=== PATIENT | female | born 1985 | race Hispanic/Latino ===

== ENCOUNTER → 2017-06-19 | Outpatient (CLI) | payer OTHER ==
[2017-06-19 10:07] LABS: HCG, SERUM QUANTITATIVE 4083 MIU/ML
== END ==
LOC: M RAD 08:46
DX: Z34.81 Encounter for supervision of other normal pregnancy, first trimester (principal)
CPT/HCPCS: 76801

== ENCOUNTER 2018-02-14 05:25 | Inpatient (IN) | payer OTHER ==
[2018-02-14] MEDS: BUPIVACAINE HCL 0.25% 10 ML VIAL INFIL (06:00)
[2018-02-14] MEDS: ACETAMINOPHEN 650 MG SUPP PR (06:00)
[2018-02-14 06:18] LABS: HEMATOCRIT 30.3 % (36.0-47.0); HEMOGLOBIN 9.9 g/dl (12.0-15.5); MEAN CORPUSCULAR HGB CONC 32.7 g/dl (32.0-36.5); MEAN CORPUSCULAR VOLUME 88.9 fl (80.0-96.0); PLATELET COUNT, AUTOMATED 263 10^3/uL (150-450); RED BLOOD COUNT 3.41 10^6/uL (4.00-5.40); RED CELL DISTRIBUTION WIDTH 14.6 % (11.5-14.5); WHITE BLOOD COUNT 12.1 10^3/uL (4.0-10.0)
[2018-02-14] MEDS: AZITHROMYCIN INJ 500 MG, VIAL MATE ADAPTER 1 EACH in D5W 250 ML IV (06:25)
[2018-02-14] MEDS: LR 1,000 ML IV (06:25)
[2018-02-14] MEDS ORDERED: LR 1,000 ML IV ×2 (07:00→10:15)
[2018-02-14] MEDS: BICITRA 30ML SOLN UDC PO (07:07)
[2018-02-14] MEDS ORDERED: NALBUPHINE HCL 10 MG/ML AMP (J2300) IV (07:55)
[2018-02-14] MEDS ORDERED: NALOXONE INJ 0.4 MG/1 ML VIAL (J2310) IV ×2 (07:55)
[2018-02-14] MEDS ORDERED: ONDANSETRON 4MG/2ML VIAL (J2405) IV ×2 (07:55→10:15)
[2018-02-14] MEDS ORDERED: MORPHINE PRES-FREE INJ 10 MG/10 ML VIAL (J2274) As Ordered (08:40)
[2018-02-14] MEDS ORDERED: ePHEDrine SULFATE 25 MG/5 ML(5MG/ML) SYRINGE As Ordered (08:40)
[2018-02-14] MEDS ORDERED: KETOROLAC 60 MG/2 ML VIAL (J1885) As Ordered (08:40)
[2018-02-14] MEDS ORDERED: dexameTHASONE 4 MG/ML 1ML VIAL (J1100) As Ordered (08:40)
[2018-02-14] MEDS ORDERED: PHENYLephrine HCL 500 MCG/5 ML (100MCG/ML) SYRINGE (J2370) As Ordered (08:40)
[2018-02-14] MEDS ORDERED: ONDANSETRON 4MG/2ML VIAL (J2405) As Ordered (08:40)
[2018-02-14] MEDS ORDERED: OXYTOCIN INJ 10 UNITS/ML VIAL (J2590) As Ordered (08:40)
[2018-02-14] MEDS: OXYTOCIN DRIP 30 UNITS in APPROPRIATE DILUENT 1 EA IV (09:10)
[2018-02-14] MEDS ORDERED: MOM 30ML SUSPENSION UDC PO (09:15)
[2018-02-14] MEDS ORDERED: OXYTOCIN INJ 10 UNITS/ML VIAL (J2590) IV (09:15)
[2018-02-14] MEDS ORDERED: PERCOCET 5MG/325MG TAB PO ×2 (09:15→10:15)
[2018-02-14] MEDS ORDERED: ANUSOL HC CREAM 30GM TOP (09:15)
[2018-02-14] MEDS ORDERED: MEASLES,MUMPS,RUBELLA VACCINE INJ (MMR-II) (90707) SC (09:15)
[2018-02-14] MEDS ORDERED: RHOGAM 300 MCG (1500 IU) INJ (J2790) IM (09:15)
[2018-02-14 09:20] LABS: CORD GAS ABE A -5.3; CORD GAS ABE V -5.6; CORD GAS HCO3 V 20.5 MEQ/L; CORD GAS O2 SAT A 40.3 %; CORD GAS O2 SAT V 49.9 %; CORD GAS PCO2 A 63.8 mmHg; CORD GAS PCO2 V 42.1 mmHg; CORD GAS PH A 7.193 UNITS; CORD GAS PH V 7.305 UNITS; CORD GAS PO2 V 21.6 mmHg; CORD GAS SBC A 18.9 MEQ/L; CORD GAS SBC V 18.9 MEQ/L; CORD GAS TCO2 A 25.9 MEQ/L; CORD GAS TCO2 V 21.8 MEQ/L
[2018-02-14] MEDS ORDERED: METOCLOPRAMIDE INJ 10MG/2ML VIAL (J2765) IV (10:15)
[2018-02-14] MEDS ORDERED: fentaNYL 100 MCG/2 ML INJECTION (J3010) IV (10:15)
[2018-02-14] MEDS: METOCLOPRAMIDE INJ 10MG/2ML VIAL (J2765) IV ×2 (12:42→21:04)
[2018-02-14] MEDS: KETOROLAC 30 MG/ML VIAL (J1885) IV ×2 (14:58→21:05)
[2018-02-14] MEDS: DOCUSATE SODIUM 100 MG CAP PO (21:18)
[2018-02-15] MEDS: KETOROLAC 30 MG/ML VIAL (J1885) IV (03:41)
[2018-02-15 07:15] LABS: HEMATOCRIT 26.3 % (36.0-47.0); HEMOGLOBIN 8.8 g/dl (12.0-15.5); MEAN CORPUSCULAR HGB CONC 33.5 g/dl (32.0-36.5); MEAN CORPUSCULAR VOLUME 89.8 fl (80.0-96.0); PLATELET COUNT, AUTOMATED 237 10^3/uL (150-450); RED BLOOD COUNT 2.93 10^6/uL (4.00-5.40); RED CELL DISTRIBUTION WIDTH 14.4 % (11.5-14.5); WHITE BLOOD COUNT 14.3 10^3/uL (4.0-10.0)
[2018-02-15] MEDS: PERCOCET 5MG/325MG TAB PO ×2 (09:05→20:58)
[2018-02-15] MEDS: IBUPROFEN 800 MG TAB PO ×2 (11:01→18:33)
[2018-02-15] MEDS: DOCUSATE SODIUM 100 MG CAP PO (20:57)
[2018-02-16] MEDS: IBUPROFEN 800 MG TAB PO (03:00)
[2018-02-16] MEDS: PERCOCET 5MG/325MG TAB PO (03:32)
== END 2018-02-16 11:14 | disposition home or self-care (01) | DRG 766 ==
LOC: M LDI 05:25 → M OBS 10:57
PROVIDERS: Obstetrics & Gynecology
PROC: 10D00Z1 Extraction of Products of Conception, Low, Open Approach (ICD-10-PCS; principal; 2018-02-14 07:30)
PROC: 0UL70DZ Occlusion of Bilateral Fallopian Tubes with Intraluminal Device, Open Approach (ICD-10-PCS; 2018-02-14 07:30)
DX: O34.211 Maternal care for low transverse scar from previous cesarean delivery (principal); Z37.0 Single live birth; Z3A.39 39 weeks gestation of pregnancy; Z30.2 Encounter for sterilization; Z79.899 Other long term (current) drug therapy; Z88.8 Allergy status to other drugs, medicaments and biological substances; O16.4 Unspecified maternal hypertension, complicating childbirth

== ENCOUNTER 2018-02-26 15:41 | Emergency (ER) | payer OTHER ==
[2018-02-26] MEDS ORDERED: SUCCINYLCHOLINE 100 MG/5 ML SYRINGE (J0330) (15:42)
[2018-02-26] MEDS ORDERED: MIDAZOLAM INJ 2 MG/2 ML VIAL (J2250) As Ordered (15:59)
[2018-02-26] MEDS ORDERED: PROPOFOL 1,000 MG/100 ML VIAL As Ordered (15:59)
[2018-02-26] MEDS: MIDAZOLAM INJ 5 MG/ML VIAL (J2250) IM (16:05)
[2018-02-26] MEDS: SUCCINYLCHOLINE INJ 200 MG/10 ML VIAL (J0330) IV (16:05)
[2018-02-26] MEDS: NS 1,000 ML IV (16:05)
[2018-02-26] MEDS: PROPOFOL 1,000 MG in APPROPRIATE DILUENT 1 EA IV ×3 (16:10→16:59)
[2018-02-26 16:19] LABS: BASO # 0.1 10^3/uL (0.0-0.2); BASO % 0.3 % (0.0-1.0); EOS % 0.2 % (0.0-3.0); HEMATOCRIT 35.9 % (36.0-47.0); HEMOGLOBIN 11.7 g/dl (12.0-15.5); IMMATURE GRANULOCYTE % 0.5 % (0-3.0); LYMPH # 2.3 10^3/uL (1.5-4.5); LYMPH % 12.9 % (24.0-44.0); MEAN CORPUSCULAR HEMOGLOBIN 29.1 pg (27.0-33.0); MEAN CORPUSCULAR HGB CONC 32.6 g/dl (32.0-36.5); MEAN CORPUSCULAR VOLUME 89.3 fl (80.0-96.0); MONO # 0.7 10^3/uL (0.0-0.8); MONO % 3.7 % (0.0-5.0); NEUTROPHILS # 14.6 10^3/uL (1.8-7.7); NEUTROPHILS % 82.4 % (36.0-66.0); PLATELET COUNT, AUTOMATED 370 10^3/uL (150-450); RED BLOOD COUNT 4.02 10^6/uL (4.00-5.40); RED CELL DISTRIBUTION WIDTH 13.6 % (11.5-14.5); WHITE BLOOD COUNT 17.7 10^3/uL (4.0-10.0)
[2018-02-26] MEDS: LABETALOL HCL 100 MG/20 ML VIAL IV ×3 (17:00→17:41)
[2018-02-26 17:06] LABS: ACETAMINOPHEN LEVEL < 2.0 UG/ML (10.0-30.0); ALBUMIN 3.4 GM/DL (3.2-5.2); ALBUMIN/GLOBULIN RATIO 0.94 (1.00-1.93); ALKALINE PHOSPHATASE 131 U/L (45-117); ALT/SGPT 22 U/L (12-78); ANION GAP 11 MEQ/L (8-16); AST/SGOT 22 U/L (7-37); BILIRUBIN,DIRECT < 0.1 MG/DL (0.0-0.2); BILIRUBIN,TOTAL 0.5 MG/DL (0.2-1.0); BLOOD UREA NITROGEN 12 MG/DL (7-18); CALCIUM LEVEL 8.6 MG/DL (8.5-10.1); CARBON DIOXIDE LEVEL 22 MEQ/L (21-32); CHLORIDE LEVEL 107 MEQ/L (98-107); CPK CREATINE PHOSPHOKINASE 218 U/L (26-192); CREATININE FOR GFR 0.96 MG/DL (0.55-1.30); GLOMERULAR FILTRATION RATE > 60.0 (>60); GLUCOSE, FASTING 128 MG/DL (70-100); MB/CK RELATIVE INDEX 0.92 (< OR =4); POTASSIUM SERUM 4.3 MEQ/L (3.5-5.1); SALICYLATE LEVEL < 1.7 MG/DL (5.0-30.0); SODIUM LEVEL 140 MEQ/L (136-145); TROPONIN I < 0.02 NG/ML (< 0.10)
[2018-02-26] MEDS ORDERED: MANNITOL 25% 12.5 GM/50 ML VIAL (J2150) IV (17:15)
[2018-02-26] MEDS ORDERED: PROPOFOL 1,000 MG in APPROPRIATE DILUENT 1 EA IV (17:15)
[2018-02-26 17:18] LABS: INR 1.07
[2018-02-26 17:19] LABS: PARTIAL THROMBOPLASTIN TIME 25.2 SECONDS (25.4-37.6)
[2018-02-26] MEDS: MANNITOL 20% IV (17:30)
[2018-02-26 17:45] LABS: ETHYL ALCOHOL (ETHANOL) < 0.003 % (0.000-0.010)
== END 2018-02-26 17:55 | disposition short-term general hospital (02) ==
LOC: M ED 15:41
DX: I61.5 Nontraumatic intracerebral hemorrhage, intraventricular (principal); I10 Essential (primary) hypertension; Z88.8 Allergy status to other drugs, medicaments and biological substances
CPT/HCPCS: J0330

== ENCOUNTER 2018-11-05 11:57 | Emergency (ER) | payer OTHER, MEDICAID ==
[~2018-11-05] VITALS: Ht 182.9 cm; Wt 104.5 kg
[~2018-11-05 11:57] MED LIST: COLA100C5 PO; FERR1TAB8 PO; IBUP-1114 PO; LABE20TAB PO; OXYC1TAB23 PO; PRENTAB45 PO; VITA500T PO
[2018-11-05] MEDS ORDERED: FOND10SO SC (12:23)
[2018-11-05] MEDS ORDERED: AMAN100T PO (12:23)
[2018-11-05] MEDS ORDERED: BACL10TA2 PO (12:23)
[2018-11-05] MEDS ORDERED: ZOLO25TA PO (12:27)
[2018-11-05] MEDS ORDERED: TRAZ-252 PO (12:27)
[2018-11-05] MEDS ORDERED: CARV12.5 PO (12:27)
[2018-11-05] MEDS ORDERED: OMEP40CA2 PO (12:27)
[2018-11-05] MEDS ORDERED: LEVE750T5 PO (12:27)
[2018-11-05 13:05] LABS: BASO % 0.3 % (0.0-1.0); EOS # 0.1 10^3/uL (0.0-0.50); EOS % 0.5 % (0.0-3.0); HEMATOCRIT 33.1 % (36.0-47.0); HEMOGLOBIN 10.4 g/dl (12.0-15.5); LYMPH % 21.2 % (24.0-44.0); MEAN CORPUSCULAR HEMOGLOBIN 25.4 pg (27.0-33.0); MEAN CORPUSCULAR HGB CONC 31.4 g/dl (32.0-36.5); MEAN CORPUSCULAR VOLUME 80.7 fl (80.0-96.0); MONO # 0.8 10^3/uL (0.0-0.8); MONO % 8.8 % (0.0-5.0); NEUTROPHILS # 6.6 10^3/uL (1.8-7.7); PLATELET COUNT, AUTOMATED 329 10^3/uL (150-450); WHITE BLOOD COUNT 9.6 10^3/uL (4.0-10.0)
[2018-11-05 13:18] LABS: ALBUMIN 3.3 GM/DL (3.2-5.2); ALT/SGPT 10 U/L (12-78); BILIRUBIN,DIRECT < 0.1 MG/DL (0.0-0.2); BILIRUBIN,TOTAL 0.3 MG/DL (0.2-1.0); BLOOD UREA NITROGEN 17 MG/DL (7-18); CALCIUM LEVEL 8.3 MG/DL (8.5-10.1); CARBON DIOXIDE LEVEL 25 MEQ/L (21-32); CHLORIDE LEVEL 106 MEQ/L (98-107); CK-MB VALUE MASS < 1.0 NG/ML (<3.6); CPK CREATINE PHOSPHOKINASE 41 U/L (26-192); CREATININE FOR GFR 0.82 MG/DL (0.55-1.30); GLOMERULAR FILTRATION RATE > 60.0 (>60); GLUCOSE, FASTING 95 MG/DL (70-100); MB/CK RELATIVE INDEX 2.44 (< OR =4); POTASSIUM SERUM 4.2 MEQ/L (3.5-5.1); SODIUM LEVEL 140 MEQ/L (136-145); TOTAL PROTEIN 7.1 GM/DL (6.4-8.2); TROPONIN I < 0.02 NG/ML (< 0.10)
--- NOTE | 2018-11-05 13:27 | REP ---
Portable chest x-ray: Single view. History: Altered mental status. Comparison chest x-ray: February 26, 2018. Findings: A right-sided ventriculoperitoneal shunt catheter is noted. EKG electrodes are visible. The lungs are symmetrically aerated and clear. Cardiomediastinal silhouette is unremarkable. Pulmonary vasculature is not increased. No significant bony abnormality is appreciated. Impression: No active disease. Right-sided POWER TONG OPERATOR shunt catheter seen. Electronically Signed by Dameon Abrams MD 11/05/2018 01:19 P
--- NOTE | 2018-11-05 14:21 | REP ---
CT Head without contrast HISTORY: Altered mental status COMPARISON: 02/26/2018 encephalomalacia. The patient is status post left frontal temporal parietal cranioplasty. An area of decreased attenuation is present in the posterior left frontal lobe, anterior left parietal lobe, left basal ganglia, internal capsule and thalamus. There is dilatation of the overlying cortical sulci and body of the left lateral ventricle. This represents encephalomalacia. An air decreased attenuation is present in the anterior right frontal lobe. This represents gliosis along a ventricular shunt tube tract. There is no intraparenchymal hemorrhage, mass or midline shift. A shunt is present in the the body of the left lateral ventricle. There is no hydrocephalus. There is no extracerebral collection. The visualized sinuses are clear. IMPRESSION: 1. Left frontal parietal, left basal ganglia, internal capsule and thalamic encephalomalacia. 2. A shunt is present in the left lateral ventricle. There is no hydrocephalus. Electronically Signed by Burton Smith MD 11/05/2018 02:14 P
[2018-11-05 14:30] VITALS: BP 127/78
--- NOTE | 2018-11-05 19:55 | ECGEPIP ---
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
== END 2018-11-05 14:58 | disposition home or self-care (01) ==
LOC: EDBD 11:57 → M ED 11:57
DX: I10 Essential (primary) hypertension (principal); Z98.2 Presence of cerebrospinal fluid drainage device; Z79.899 Other long term (current) drug therapy; Z91.89 Other specified personal risk factors, not elsewhere classified

== ENCOUNTER → 2018-11-07 | Outpatient (RCR) | payer OTHER, MEDICAID ==
--- NOTE | 2018-10-16 16:45 | NUR ---
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 ST recommends tx 2 x weekly for at least 4 weeks Addendum: 10/16/18 at 1646 by MENA HOFFMAN Amended: Links added.
[~2018-11-07] MED LIST changes: +AMAN100T PO; +BACL10TA2 PO; +CARV12.5 PO; +FOND10SO SC; +LEVE750T5 PO; +OMEP40CA2 PO; +TRAZ-252 PO; +ZOLO25TA PO
== END ==
LOC: M PT 10-16 07:46
PROVIDERS: ATTEND Family Medicine
DX: I61.5 Nontraumatic intracerebral hemorrhage, intraventricular (principal); Z51.89 Encounter for other specified aftercare

== ENCOUNTER 2018-12-04 08:40 | Outpatient (RCR) | payer OTHER, MEDICAID | END 2018-12-07 | LOC: M PT 08:40 | PROVIDERS: ATTEND Family Medicine | DX: G40.89 Other seizures (principal); I61.5 Nontraumatic intracerebral hemorrhage, intraventricular ==

== ENCOUNTER 2018-12-10 01:31 | Emergency (ER) | payer OTHER, MEDICAID ==
[~2018-12-10] VITALS: Ht 182.9 cm; Wt 90.0 kg
[2018-12-10 02:14] LABS: HEMATOCRIT 32.6 % (36.0-47.0); HEMOGLOBIN 9.9 g/dl (12.0-15.5); MEAN CORPUSCULAR HEMOGLOBIN 24.4 pg (27.0-33.0); MEAN CORPUSCULAR HGB CONC 30.4 g/dl (32.0-36.5); MEAN CORPUSCULAR VOLUME 80.3 fl (80.0-96.0); PLATELET COUNT, AUTOMATED 371 10^3/uL (150-450); RED BLOOD COUNT 4.06 10^6/uL (4.00-5.40)
[2018-12-10 02:34] LABS: ALBUMIN 3.1 GM/DL (3.2-5.2); ALT/SGPT 11 U/L (12-78); BILIRUBIN,TOTAL 0.1 MG/DL (0.2-1.0); BLOOD UREA NITROGEN 23 MG/DL (7-18); CALCIUM LEVEL 8.2 MG/DL (8.5-10.1); CARBON DIOXIDE LEVEL 28 MEQ/L (21-32); CHLORIDE LEVEL 106 MEQ/L (98-107); CREATININE FOR GFR 1.07 MG/DL (0.55-1.30); GLOMERULAR FILTRATION RATE > 60.0 (>60); GLUCOSE, FASTING 81 MG/DL (70-100); POTASSIUM SERUM 4.3 MEQ/L (3.5-5.1); SODIUM LEVEL 143 MEQ/L (136-145); TOTAL PROTEIN 6.5 GM/DL (6.4-8.2)
[2018-12-10 06:56] VITALS: BP 127/68
--- NOTE | 2018-12-10 08:00 | REP ---
Clinical: cough . Comparison: 11/05/2018 of the . Findings: The mediastinum and cardiac silhouette are stable and within normal limits for portable technique. The lung chaudhary are clear without acute consolidation, effusion, or pneumothorax. Skeletal structures are intact. Impression: No acute cardiopulmonary process appreciated. Electronically Signed by Cuauhtemoc Winters MD 12/10/2018 07:51 A
== END 2018-12-10 07:14 | disposition home or self-care (01) ==
LOC: M ED 01:31
DX: G40.909 Epilepsy, unspecified, not intractable, without status epilepticus (principal); Z86.73 Personal history of transient ischemic attack (TIA), and cerebral infarction without residual deficits; Z79.899 Other long term (current) drug therapy; Z88.8 Allergy status to other drugs, medicaments and biological substances

== ENCOUNTER 2019-01-06 08:41 | Outpatient (RCR) | payer OTHER, MEDICAID | END 2019-01-07 | LOC: M OT 08:41 | PROVIDERS: ATTEND Family Medicine | DX: Z51.89 Encounter for other specified aftercare (principal); I61.5 Nontraumatic intracerebral hemorrhage, intraventricular ==

== ENCOUNTER → 2019-01-19 | Outpatient (CLI) | payer OTHER, MEDICAID ==
--- NOTE | 2019-01-19 11:26 | REP ---
Duplex extremity venous ultrasound: Right lower extremity. History: History of DVT. Findings: The deep veins are anechoic and fully compressible from the groin to the popliteal fossa in the right lower extremity. Color flow imaging is homogeneous. Spectral Doppler interrogation demonstrates intact respiratory variation in flow and normal manual augmentation of flow. There is no evidence of deep vein thrombosis. Impression: Negative right lower extremity duplex venous ultrasound. No evidence of deep vein thrombosis. Electronically Signed by Dameon Abrams MD 01/19/2019 11:17 A
== END ==
LOC: M RAD 10:35
PROVIDERS: ATTEND Family Medicine
DX: Z51.89 Encounter for other specified aftercare (principal); Z86.73 Personal history of transient ischemic attack (TIA), and cerebral infarction without residual deficits; Z86.718 Personal history of other venous thrombosis and embolism; Z79.01 Long term (current) use of anticoagulants

== ENCOUNTER 2019-02-05 09:47 | Outpatient (RCR) | payer OTHER, MEDICAID | END 2019-02-07 | LOC: M PT 09:47 | PROVIDERS: ATTEND Family Medicine | DX: Z51.89 Encounter for other specified aftercare (principal); I61.9 Nontraumatic intracerebral hemorrhage, unspecified; R56.9 Unspecified convulsions ==

== ENCOUNTER 2019-02-21 06:46 | Inpatient (IN) | payer OTHER, MEDICAID ==
[~2019-02-21] VITALS: Ht 182.9 cm; Wt 120.0 kg
[2019-02-21] MEDS ORDERED: ASPI81TA85 PO (07:19)
[2019-02-21 08:40] LABS: BASO % 0.2 % (0.0-1.0); EOS # 0.1 10^3/uL (0.0-0.5); EOS % 0.5 % (0.0-3.0); HEMATOCRIT 22.1 % (36.0-47.0); LYMPH # 1.6 10^3/uL (1.5-5.0); LYMPH % 9.2 % (24.0-44.0); MEAN CORPUSCULAR HEMOGLOBIN 23.1 pg (27.0-33.0); MEAN CORPUSCULAR HGB CONC 30.8 g/dl (32.0-36.5); MEAN CORPUSCULAR VOLUME 75.2 fl (80.0-96.0); MONO # 1.7 10^3/uL (0.0-0.8); MONO % 9.8 % (0.0-5.0); NEUTROPHILS # 13.3 10^3/uL (1.5-8.5); NEUTROPHILS % 77.6 % (36.0-66.0); PLATELET COUNT, AUTOMATED 413 10^3/uL (150-450); RED BLOOD COUNT 2.94 10^6/uL (4.00-5.40); WHITE BLOOD COUNT 17.1 10^3/uL (4.0-10.0)
[2019-02-21 08:46] LABS: HEMOGLOBIN 6.8 g/dl (12.0-15.5)
[2019-02-21 08:49] LABS: ALBUMIN 2.5 GM/DL (3.2-5.2); BILIRUBIN,DIRECT 0.8 MG/DL (0.0-0.2); BILIRUBIN,TOTAL 1.3 MG/DL (0.2-1.0); CALCIUM LEVEL 9.1 MG/DL (8.5-10.1); CREATININE FOR GFR 1.21 MG/DL (0.55-1.30); GLOMERULAR FILTRATION RATE 53.9 (>60); POTASSIUM SERUM 3.9 MEQ/L (3.5-5.1); TOTAL PROTEIN 7.4 GM/DL (6.4-8.2)
[2019-02-21 11:00] LABS: PERCENT SATURATION 4.2 % (13.2-45.0)
--- NOTE | 2019-02-21 11:32 | REP ---
REASON: Abdominal pain, assess for possible diverticulitis. Oral bowel preparatory contrast was not administered prior to the exam. Intravenous contrast was withheld due to the patient's known INTRAVENOUS CONTRAST ALLERGY. COMPARISON EXAMINATION: 02/26/2018 The lung bases are clear. The patchy basilar opacities seen on the prior exam have resolved. There are no pleural or pericardial effusions. Limited evaluation of the solid intra-abdominal organs and gallbladder shows no gross abnormalities. Limited evaluation of the pancreas, adrenal glands, and kidneys, shows no gross abnormalities. Limited evaluation of the abdominal aorta and para-aortic regions shows no abnormalities. Since the last examination, an inferior vena cava filter has been placed, the tip of which is at the level of the inferior endplate of L1. Limited evaluation of the bowel loops and their mesenteries shows a minimal amount of free fluid in the left paracolic gutter. There is minimal fatty infiltration of the left lateroconal fascia. There is no definite pericolonic fatty infiltration on this limited exam. There is no free air in the abdomen. There is no free air in the pelvis. There is a moderate amount of free pelvic fluid. There is evidence of left iliac vein enlargement compared to the right, not appreciated well on the left thigh CT since no comparison right-sided thigh CT was obtained. This suggested finding is difficult to evaluate without intravenous contrast administration. In addition, there is evidence of perivascular fatty infiltration. There are multiple borderline and enlarged left hemipelvic sidewall and inguinal lymph nodes. Bone window technique throughout the exam shows the osseous structures to be within normal limits for the patient's age. Note is made of a partially imaged right-sided ventricular peritoneal shunt catheter, the tip of which is in the right anterior hemipelvis. IMPRESSION: 1. Free fluid in the abdomen/pelvis with nonpericolonic fatty infiltration in the left hemipelvis and seen with a minimal amount of fluid in the left paracolic gutter and a small to moderate amount of free pelvic fluid. There is no definite evidence of diverticulitis at this time. 2. Abnormal findings involving the left iliac vessels and proximal thigh neurovascular bundle, as described above. Vasculitis cannot be ruled out. Acute DVT cannot be ruled out. 3. There is left groin and left sidewall adenopathy further suggesting an inflammatory process of uncertain etiology. 4. Other findings as described above. Electronically Signed by Ellis Blas DO 02/21/2019 11:35 A
--- NOTE | 2019-02-21 11:40 | REP ---
REASON FOR EXAM: Assess for potential abscess inner aspect left thigh. Patient has an INTRAVENOUS CONTRAST ALLERGY. Intravenous contrast was withheld secondary to that. There is mild to moderate diffuse fatty infiltration seen throughout the imaged anterior and medial thigh subcutanea. There is mild to moderate diffuse fatty infiltration surrounding the neurovascular bundle of the thigh. This is difficult to fully assess due to the lack of intravenous contrast administration. There are no abnormal air-fluid levels. There is no fracture. There is no destructive osseous lesion. IMPRESSION: Edema with findings and limitations as described above. This examination can not assess for a potential vascular abnormality. Electronically Signed by Ellis Blas DO 02/21/2019 11:50 A
[2019-02-21] MEDS ORDERED: TIZA2CAP PO ×2 (12:28)
[2019-02-21] MEDS ORDERED: LEVE750XR PO (12:28)
--- NOTE | 2019-02-21 12:57 | REP ---
REASON: Thigh pain and swelling with prior CT evidence to suggest venous abnormality. All interested parties should review the CT of the abdomen and CT of the left thigh report. Multiple ultrasonographic images of the deep venous structures of the left thigh were obtained from the level of the common femoral vein to the popliteal vein along with Doppler interrogative techniques and color flow Doppler imaging. Extensive abnormal echogenic material fills the imaged deep venous structures from the common femoral vein to the popliteal vein inclusive. There is no response to augmentation, and there is inability for coaptation. The technologist noted extensive edema of the thigh soft tissues throughout the exam. IMPRESSION: There is extensive deep vein thrombosis involving the left thigh, as described above. Electronically Signed by Ellis lBas DO 02/21/2019 03:17 P
[2019-02-21] MEDS ORDERED: PILL CUTTER 1 EACH XX PRN (13:30)
[2019-02-21] MEDS ORDERED: cefTRIAXone SOD 1 GM in D5W MINI-BAG PLUS 50 ML IV ONE (13:30)
--- NOTE | 2019-02-21 14:01 | REP ---
REASON: Pain and swelling. COMPARISON: 01/19/2019, which was normal. Multiple ultrasonographic images of the deep venous structures of the right thigh were obtained from the level of the common femoral vein to the popliteal vein along with Doppler compressive technique, augmentation, and color flow imaging. There is abnormal echogenic material seen throughout the deep venous structures of the right thigh, as described above. Coaptation is unachievable. IMPRESSION: Extensive right thigh DVT. Electronically Signed by Ellis Blas DO 02/21/2019 03:20 P
[2019-02-21] MEDS: HEPARIN DRIP 25,000 UNITS in APPROPRIATE DILUENT 1 EA IV SCH (14:23)
[2019-02-21 14:45] VITALS: BP 123/67
--- NOTE | 2019-02-21 15:07 | HPEPDOC ---
[facility] Medical History & Physical Date of Admission Feb 21, 2019 Date of Service: Feb 21, 2019 Other Provider PCP: Eran cordero Attending Physician: TOBI VERDUGO MD History and Physical PRIMARY CARE PROVIDER: Eran Cordero ATTENDING: Dr. Tobi Verdugo CHIEF COMPLAINT: lower extremity swelling, abdominal pain HISTORY OF PRESENT ILLNESS: Patient is a 33 year old female presenting with chief complaint of left lower extremity swelling/pain for one week along with some lower abdominal pain, fevers, chills, weakness, malaise, poor appetite, and dysuria. Work up in the ER revealed LLE DVT, a hgb of 6.8 with low iron, WBC of 17, and a cloudy UA with some WBCs. Dr. Roth was consulted for further management. Below is a brief synopsis of patient's pertinent recent past medical history: Patient had a on 02/14/2018 and was stable on discharge home. On 02/26/18, the patient's returned home from work and found her unresponsive. She was brought to [facility] ED where she needed to be intubated and a CT scan showed intracranial hemorrhage with transtentorial herniation so the patient was transferred to [facility] for craniotomy to relieve her intracranial pressure however patient was left with R-sided hemiparesis. This was thought to be due to a seizure secondary to the patient's eclampsia. She continued to have recurrent seizures and is seeing Dr. Marin for same. While working with rehab, it was noticed she was having lower extremity swelling and after an ultrasound revealed she had DVT's, an IVC filter was placed and she was started on fondoparinoux. She was on the for 9 months and it was discontinued by [facility] approximately 4 weeks ago. She underwent a right lower extremity U/S on 01/19 that was negative for a DVT. PAST MEDICAL HISTORY: Seizures 2/2 eclampsia Intracranial Hemorrhage secondary eclampsia Obesity PAST SURGICAL HISTORY: CSx2 Craniotomy Bilateral tubal ligation SOCIAL HISTORY: Denies use of alcohol, tobacco products, or illicit drug use. Lives at home with her and 2 children. FAMILY HISTORY: No family history of blood disorders, strokes, or seizure disorders. ALLERGIES: Please see below. REVIEW OF SYSTEMS: GENERAL: Denies recent unexpected weight change, night sweats, hemoptysis. Admits to fevers, chills. HEENT: Denies headache, dizziness, vision changes, hearing loss, sore throat CARDIOVASCULAR: Denies chest pain, palpitations, orthopnea RESPIRATORY: Denies shortness of breath, wheezing, cough GASTROINTESTINAL: denies nausea, vomiting, constipation, diarrhea, bloody stool. Admits to mild lower abdominal tenderness. GENITOURINARY: Denies urinary urgency, hematuria. Admits to dysuria and pyuria. MUSCULOSKELETAL: Denies muscle/joint pain, weakness, stiffness NEUROLOGICAL: Denies any new or worsening numbness/tingling, focal weakness, or syncope HOME MEDICATIONS: Please see below. PHYSICAL EXAMINATION: Vitals: (see below) General: Sad appearing 33 year old female who appears stated age sitting in bed HEENT: Normocephalic, atraumatic. EOMI. Moist mucous membranes. No pharyngeal e rythema or uvular deviation. Neck: No JVD, lymphadenopathy, or thyromegaly. Cardiac: RRR, Normal S1 and S2, No murmurs, gallops, rubs. Pulm: Clear to auscultation b/l. Symmetric thorax. No wheezing, crackles, rhonchi Abd: Bowel Sounds present. Abdomen is soft, non-tender, non-distended. No guardi ng, rebound tenderness, or rigidity. Ext: Bilateral lower extremity edema. Difficult to palpate LE pulses secondary to patient body habitus. Neuro: Patient is alert and oriented. CN 2-12 intact. RUE+0/5, RLE+1/5. LUE +5/5, LLE +3/5. Sensation intact in LUE, LLE. Diminished sensation in RUE and RLE. LABORATORY DATA: See below. IMAGIN02/21/[address] without contrast: There is mild to moderate diffuse fatty infiltration seen throughout the imaged anterior and medial thigh subcutanea. There is mild to moderate diffuse fatty infiltration surrounding the neurovascular bundle of the thigh. This is difficult to fully assess due to the lack of intravenous contrast administrat ion. There are no abnormal air-fluid levels. There is no fracture. There is no destructive osseous lesion. 02/21/19 abdomen/pelvis CT: 1. Free fluid in the abdomen/pelvis with nonpericolonic fatty infiltration in the left hemipelvis and seen with a minimal amount of fluid in the left paracolic gutter and a small to moderate amount of free pelvic fluid. There is no definite evidence of diverticulitis at this time. 2. Abnormal findings involving the left iliac vessels and proximal thigh neurova scular bundle, as described above. Vasculitis cannot be ruled out. Acute DVT cannot be ruled out. 3. There is left groin and left sidewall adenopathy further suggesting an inflammatory process of uncertain etiology. 02/21/19 left lower extremity ultrasound: Extensive abnormal echogenic material fills the imaged deep venous structures from the common femoral vein to the popliteal vein inclusive. There is no response to augmentation, and there is inability for coaptation. 02/21/19 right lower extremity ultrasound Extensive right thigh DVT from common femoral vein to the popliteal vein. MICROBIOLOGY: Please see below. ASSESSMENT/PLAN: #. Bilateral lower extremity DVT -Dr. Roht has been consulted and spoke to ED provider as well as Dr. Verdugo. The plan, per , is for 24 hours of heparin drip after which he will proceed with thrombolysis. Dr. Verdugo explained to both the patient and her , at length, the risks including and further intracranial stroke/bleed of both the heparin drip and thrombolysis in light of the patient's history of intracranial hemorrhage. The patient and her verbalized understanding and agreement with the risks associated with treatment and were comfortable with the plan for thrombolysis moving forward. - gave number for adult protective caseworker at [facility] who is available M-F at [phone]. #. Microcytic anemia - Type and cross, planning to transfuse 2 units of blood, consent already signed. Patient reports no history of bleeding so we will continue to monitor while patient is on heparin drip. - Obtaining iron panel #. Dysuria -Given patients WBC count, temperature at home of 102, chills, lower abdominal p ain, mild renal insufficiency, and urinary symptoms we will treat for UTI with ceftriaxone and draw urine cultures to see if anything grows. -Tylenol for fevers #. Right-sided hemiparesis s/p ICH -PT/OT consulted, she works with them during the week already. #. Leukocytosis -Treating for UTI currently as no evidence of infection elsewhere, could just be secondary to inflammation from DVT. Will await blood culture and urine culture results. #. Renal insufficiency - This could be from the suspected UTI will continue to monitor for changes. #. Recurrent seizures -Continue home jinny alvarezantadine #.GERD -Continue home omeprazole #. HTN -Continue home carvedilol DVT proph: N/a; actively treating bilateral lower extremity DVT Vital Signs Vital Signs Date Time Temp Pulse Resp B/P (MAP) Pulse Ox O2 Delivery O2 Flow Rate FiO2 02/21/19 13:43 98.8 02/21/19 13:31 98 18 139/79 (99) 100 Room Air Laboratory Data Labs 24H Laboratory Tests 2 02/21/19 07:26: Immature Granulocyte % (Auto) 2.7, White Blood Count 17.1H, Red Blood Count 2.94L, Hemoglobin 6.8*L, Hematocrit 22.1L, Mean Corpuscular Volume 75.2L, Mean Corpuscular Hemoglobin 23.1L, Mean Corpuscular Hemoglobin Concent 30.8L, Red Cell Distribution Width 17.1H, Platelet Count 413, Neutrophils (%) (Auto) 77.6H, Lymphocytes (%) (Auto) 9.2L, Monocytes (%) (Auto) 9.8H, Eosinophils (%) (Auto) 0.5, Basophils (%) (Auto) 0.2, Neutrophils # (Auto) 13.3H, Lymphocytes # (Auto) 1.6, Monocytes # (Auto) 1.7H, Eosinophils # (Auto) 0.1, Basophils # (Auto) 0.0, Nucleated Red Blood Cells % (auto) 0.0, Urine Color HANY, Urine Appearance CLOUDYH, Urine pH 5.0, Urine Specific Sharon 1.028, Urine Protein 2+H, Urine Glucose (UA) NEGATIVE, Urine Ketones NEGATIVE, Urine Blood NEGATIVE, Urine Nitrite NEGATIVE, Urine Bilirubin 1+H, Urine Urobilinogen 4.0H, Urine Leukocyte Esterase NEGATIVE, Urine WBC (Auto) 7H, Urine RBC (Auto) 1, Urine Hyaline Casts (Auto) 0, Urine Bacteria (Auto) NEGATIVE, Urine Squamous Epithelial Cells 1, Urine Amorphous Sediment SMALLH, Urine Mucus (Auto) LARGE, Urine Sperm (Auto) , Anion Gap 10, Glomerular Filtration Rate 53.9L, Calcium Level 9.1, Iron Level 11L, Total Iron Binding Capacity 263, Transferrin % Saturation 4.2L, Ferritin 227, Aspartate Amino Transf (AST/SGOT) 44H, Alanine Aminotransferase (ALT/SGPT) 74, Alkaline Phosphatase 355H, Total Bilirubin 1.3H, Direct Bilirubin 0.8H, Total Protein 7.4, Albumin 2.5L, Albumin/Globulin Ratio 0.51L 02/21/19 09:35: Lactic Acid Level 0.9, Ammonia < 10 02/21/19 13:42: CBC/BMP Laboratory Tests 02/21/19 07:26 Red Blood Count 2.94 L, Mean Corpuscular Volume 75.2 L, Mean Corpuscular Hemoglobin 23.1 L, Mean Corpuscular Hemoglobin Concent 30.8 L, Red Cell Distribution Width 17.1 H, Neutrophils (%) (Auto) 77.6 H, Lymphocytes (%) (Auto) 9.2 L, Monocytes (%) (Auto) 9.8 H, Eosinophils (%) (Auto) 0.5, Basophils (%) (Auto) 0.2, Neutrophils # (Auto) 13.3 H, Lymphocytes # (Auto) 1.6, Monocytes # (Auto) 1.7 H, Eosinophils # (Auto) 0.1, Basophils # (Auto) 0.0 Microbiology Microbiology 02/21/19 Blood Culture, Received Pending 02/21/19 Blood Culture, Received Pending 02/21/19 Respiratory Virus Panel (PCR) (SARAH) - Final, Complete 02/21/19 Urine Culture, Received Pending Home Medications Scheduled Amantadine HCl (Amantadine) 100 Mg Tablet, 100 MG PO BID TAKES AT 0800/1200 Aspirin (Aspir 81) 81 Mg Tablet.dr, 81 MG PO DAILY TAKES AT NOON Carvedilol (Carvedilol) 12.5 Mg Tablet, 12.5 MG PO BID TAKES AT 1200/2000 Levetiracetam (Levetiracetam ER) 750 Mg Tab.er.24h, 750 MG PO BID TAKES AT 0800/2000 Omeprazole (Omeprazole) 40 Mg Capsule.dr, 40 MG PO DAILY TAKES AT NOON Tizanidine HCl (Tizanidine HCl) 2 Mg Capsule, 2 MG PO DAILY Tizanidine HCl (Tizanidine HCl) 2 Mg Capsule, 4 MG PO QHS Allergies Coded Allergies: iodine (Verified Allergy, Intermediate, hives, 12/10/18) A-FIB/CHADSVASC A-FIB History Current/History of A-Fib/PAF?: No GME ATTESTATION GME ATTESTATION My faculty preceptor for this patient encounter was physically present during the encounter and was fully available. All aspects of the patient interview, examination, medical decision making process, and medical care plan development were reviewed and approved by the faculty preceptor. The faculty preceptor is aware and concurs with the plan as stated in the body of this note and will attest to such by his/her cosignature. ATTENDING NOTE I, Tobi Verdugo, have independently examined this patient and performed my own physical exam, as well as reviewed the documentation and edited where necessary. I have discussed in detail with the resident / student the findings and plan of treatment as documented by the resident / student and edited their note. I agree with their findings and treatment plan and have edited their documentation. I will continue to follow the patient during this hospital stay. MENDOZA GARCÍA DO Feb 21, 2019 15:07 TOBI VERDUGO MD Feb 21, 2019 22:40
[2019-02-21] MEDS: CARVedilol 12.5 MG TAB PO SCH ×2 (15:54→20:00)
[2019-02-21] MEDS: OMEPRAZOLE 20 MG CAP PO SCH (15:55)
[2019-02-21] MEDS: ASPIRIN 81 MG ENTERIC TAB PO SCH (15:55)
[2019-02-21] MEDS: levETIRAcetam **XR** 750MG TABLET (KEPPRA XR) PO SCH ×2 (15:56→20:36)
[2019-02-21] MEDS: AMANTADINE 100 MG CAP PO SCH (15:56)
[2019-02-21 18:00] VITALS: BP 127/61
[2019-02-21 20:00] VITALS: BP 118/58
[2019-02-21] MEDS: tiZANidine 4 MG TAB PO SCH (20:36)
[2019-02-21] MEDS ORDERED: LIDOCAINE 1% MDV 20ML VIAL As Ordered ONE (22:12)
[2019-02-21 23:15] VITALS: BP 119/58
[2019-02-21] MEDS ORDERED: IBUPROFEN 400 MG TAB PO ONE (23:15)
[2019-02-21] MEDS: HEPARIN SOD (PORCINE) 5000 UNITS/ML VIAL IV PRN (23:28)
[2019-02-21 23:30] VITALS: BP 115/56
[2019-02-21] MEDS ORDERED: LIDOCAINE 1% MDV 20ML VIAL SC ONE (23:50)
[2019-02-22] VITALS (8 sets, daily range): BP systolic 92–131; BP diastolic 52–63
[2019-02-22] MEDS: HEPARIN DRIP 25,000 UNITS in APPROPRIATE DILUENT 1 EA IV SCH (03:49)
[2019-02-22 05:19] LABS: HEMATOCRIT 24.6 % (36.0-47.0); MEAN CORPUSCULAR HEMOGLOBIN 24.8 pg (27.0-33.0); MEAN CORPUSCULAR HGB CONC 32.5 g/dl (32.0-36.5); MEAN CORPUSCULAR VOLUME 76.4 fl (80.0-96.0); PLATELET COUNT, AUTOMATED 442 10^3/uL (150-450); RED BLOOD COUNT 3.22 10^6/uL (4.00-5.40); WHITE BLOOD COUNT 17.1 10^3/uL (4.0-10.0)
[2019-02-22 05:29] LABS: INR 1.29; PROTHROMBIN TIME 15.8 SECONDS (11.8-14.0)
[2019-02-22 05:31] LABS: PARTIAL THROMBOPLASTIN TIME 80.5 SECONDS (25.0-38.4)
[2019-02-22 06:20] LABS: CALCIUM LEVEL 8.4 MG/DL (8.5-10.1); CREATININE FOR GFR 1.13 MG/DL (0.55-1.30); GLOMERULAR FILTRATION RATE 58.3 (>60); POTASSIUM SERUM 4.1 MEQ/L (3.5-5.1)
[2019-02-22] MEDS: AMANTADINE 100 MG CAP PO SCH ×2 (08:53→11:12)
[2019-02-22] MEDS: tiZANidine 4 MG TAB PO SCH ×2 (08:53→20:22)
[2019-02-22] MEDS: levETIRAcetam **XR** 750MG TABLET (KEPPRA XR) PO SCH ×2 (08:53→20:22)
[2019-02-22] MEDS: cefTRIAXone SOD 1 GM in D5W MINI-BAG PLUS 50 ML IV SCH (08:53)
[2019-02-22] MEDS: ACETAMINOPHEN TAB 650MG DOSE (2X325MG) PO PRN (09:51)
--- NOTE | 2019-02-22 10:10 | IPNPDOC ---
Text Note Date of Service The patient was seen on 02/22/19. NOTE Subjective: Patient is a 33-year-old female with past medical history of ICH s/p surgical decompression, Seizures 2/2 eclampsia, Obestiy, Hx of DVT (s/p IVC and An ticoagulation >9 months) who presented to the emergency room after experiencing discomfort with urination as well as left lower abdominal pain and left leg. Patient noted that she had been taken off of anticoagulation, possibly 4 weeks ago after having a negative evaluation for DVT via a duplex ultrasound of her lower extremities. Upon arrival to emergency room, patient was suspected of having a urinary tract infection as well as extensive DVT of her left lower extremity. Additional imaging in the emergency room revealed that she had DVTs in her right lower extremity as well. Vascular surgery was called on consultation and hospitalist group was called for further evaluation Patient was seen and examined at the bedside. Currently, patient reports that she feels relatively unchanged. She denies any chest pain, shortness of breath or palpitations. Patient denies any significant discomfort with urination. Does report some leg discomfort. Objective: Vitals (See below) General: Lying in bed, no acute distress, comfortable, AAOx3 HEENT: NC, AT CVS: +S1S2 Lungs: Fair air entry b/l, -w/r/r Abdomen: Soft, ND, NT Extremities: Trace edema bilaterally, - Calf tenderness Imagin02/21/[address] without contrast: There is mild to moderate diffuse fatty infiltration seen throughout the imaged anterior and medial thigh subcutanea. There is mild to moderate diffuse fatty infiltration surrounding the neurovascular bundle of the thigh. This is difficult to fully assess due to the lack of intravenous contrast administrati on. There are no abnormal air-fluid levels. There is no fracture. There is no destructive osseous lesion. 02/21/19 abdomen/pelvis CT: 1. Free fluid in the abdomen/pelvis with nonpericolonic fatty infiltration in the left hemipelvis and seen with a minimal amount of fluid in the left paracolic gutter and a small to moderate amount of free pelvic fluid. There is no definite evidence of diverticulitis at this time. 2. Abnormal findings involving the left iliac vessels and proximal thigh neurovascular bundle, as described above. Vasculitis cannot be ruled out. Acute DVT cannot be ruled out. 3. There is left groin and left sidewall adenopathy further suggesting an inflammatory process of uncertain etiology. 02/21/19 left lower extremity ultrasound: Extensive abnormal echogenic material fills the imaged deep venous structures from the common femoral vein to the popliteal vein inclusive. There is no response to augmentation, and there is inability for coaptation. 02/21/19 right lower extremity ultrasound Extensive right thigh DVT from common femoral vein to the popliteal vein. Assessment and plan: Leg discomfort - likely 2/2 sensitive bilateral lower extremity DVT - possibly 2/2 thrombus extending from IVC filter - Currently, patient remains hemodynamically stable - Duplex ultrasound; noted above - extensive DVTs bilaterally - I had an extensive discussion with the patient as well as her , including risks and benefits of anticoagulation/thrombolysis - advised to her the risks include possibility of intracranial hemorrhage given her prior histor y, also disability and/or - Dr. 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/2018) - She follows physical therapy/occupational therapy as an outpatient Leukocytosis - possibly 2/2 UTI (See above), possibly 2/2 reactive etiology - from extensive DVT - Hemodynamically stable / Afebrile - Will continue to monitor Renal insufficiency - Will start gentle IV fluid hydration for 1 liter only HTN - BP well controlled - c/w Carvedilol - adjusted to include holding parameters Hx of Seizures - c/w Keppra GERD - c/w Omeprazole DVT prophylaxis - c/w full anticoagulation with Heparin drip VS,Fishbone, I+O VS, Fishbone, I+O Laboratory Tests 02/22/19 05:03 Red Blood Count 3.22 L, Mean Corpuscular Volume 76.4 L, Mean Corpuscular Hemoglobin 24.8 L, Mean Corpuscular Hemoglobin Concent 32.5, Red Cell Distribution Width 18.6 H, Calcium Level 8.4 L Vital Signs Date Time Temp Pulse Resp B/P (MAP) Pulse Ox O2 Delivery O2 Flow Rate FiO2 02/22/19 03:45 99.4 83 16 92/52 (65) 02/21/19 23:30 96 02/21/19 13:31 Room Air I&O- Last 24 Hours up to 6 AM 02/22/19 06:00 Intake Total 1105 ml Output Total 300 ml Balance 805 ml KYLEE VIGIL MD Feb 22, 2019 10:10
[2019-02-22] MEDS ORDERED: NS 1,000 ML IV ONE (10:15)
[2019-02-22 10:20] LABS: HEMATOCRIT 26.4 % (36.0-47.0); HEMOGLOBIN 8.6 g/dl (12.0-15.5); MEAN CORPUSCULAR HEMOGLOBIN 24.7 pg (27.0-33.0); MEAN CORPUSCULAR HGB CONC 32.6 g/dl (32.0-36.5); MEAN CORPUSCULAR VOLUME 75.9 fl (80.0-96.0); PLATELET COUNT, AUTOMATED 489 10^3/uL (150-450); RED BLOOD COUNT 3.48 10^6/uL (4.00-5.40); WHITE BLOOD COUNT 17.9 10^3/uL (4.0-10.0)
[2019-02-22] MEDS: HEPARIN SOD (PORCINE) 5000 UNITS/ML VIAL IV PRN (11:10)
[2019-02-22] MEDS: OMEPRAZOLE 20 MG CAP PO SCH (11:12)
[2019-02-22] MEDS: CARVedilol 12.5 MG TAB PO SCH ×2 (11:15→20:23)
[2019-02-22] MEDS: ASPIRIN 81 MG ENTERIC TAB PO SCH (11:15)
[2019-02-22 11:18] LABS: LYMPHOCYTES 11 % (16-44); METAMYELOCYTES 2 % (0-0); MONOCYTES 3 % (0-5); NEUTROPHILS 80 % (28-66)
[2019-02-22 11:19] LABS: OVALOCYTES 1+; PLATELET ESTIMATE INCREASED (NORMAL)
[2019-02-22 11:20] LABS: ANISOCYTOSIS 2+
[2019-02-23] VITALS (16 sets, daily range): BP systolic 93–122; BP diastolic 51–73
[2019-02-23] MEDS: HEPARIN DRIP 25,000 UNITS in APPROPRIATE DILUENT 1 EA IV SCH (04:13)
[2019-02-23 07:14] LABS: HEMOGLOBIN 7.5 g/dl (12.0-15.5); MEAN CORPUSCULAR HEMOGLOBIN 24.2 pg (27.0-33.0); MEAN CORPUSCULAR HGB CONC 32.6 g/dl (32.0-36.5); MEAN CORPUSCULAR VOLUME 74.2 fl (80.0-96.0); PLATELET COUNT, AUTOMATED 536 10^3/uL (150-450); WHITE BLOOD COUNT 15.9 10^3/uL (4.0-10.0)
[2019-02-23 07:28] LABS: INR 1.27; PROTHROMBIN TIME 15.6 SECONDS (11.8-14.0)
[2019-02-23 07:29] LABS: PARTIAL THROMBOPLASTIN TIME 89.8 SECONDS (25.0-38.4)
[2019-02-23 07:51] LABS: BLOOD UREA NITROGEN 27 MG/DL (7-18); CALCIUM LEVEL 8.2 MG/DL (8.5-10.1); CARBON DIOXIDE LEVEL 21 MEQ/L (21-32); CHLORIDE LEVEL 108 MEQ/L (98-107); CREATININE FOR GFR 0.74 MG/DL (0.55-1.30); GLOMERULAR FILTRATION RATE > 60.0 (>60); GLUCOSE, FASTING 110 MG/DL (70-100); POTASSIUM SERUM 4.2 MEQ/L (3.5-5.1); SODIUM LEVEL 140 MEQ/L (136-145)
[2019-02-23] MEDS: cefTRIAXone SOD 1 GM in D5W MINI-BAG PLUS 50 ML IV SCH (09:42)
[2019-02-23] MEDS: tiZANidine 4 MG TAB PO SCH ×2 (09:43→21:04)
[2019-02-23] MEDS: AMANTADINE 100 MG CAP PO SCH ×2 (09:44→11:34)
[2019-02-23] MEDS: levETIRAcetam **XR** 750MG TABLET (KEPPRA XR) PO SCH ×2 (10:03→21:03)
[2019-02-23 10:24] LABS: FOLATE 18.7 NG/ML (>5.4)
--- NOTE | 2019-02-23 10:33 | IPNPDOC ---
Text Note Date of Service The patient was seen on 02/23/19. NOTE Subjective: Patient is a 33-year-old female with past medical history of ICH s/p surgical decompression, Seizures 2/2 eclampsia, Obestiy, Hx of DVT (s/p IVC and An ticoagulation >9 months) who presented to the emergency room after experiencing discomfort with urination as well as left lower abdominal pain and left leg. Patient noted that she had been taken off of anticoagulation, possibly 4 weeks ago after having a negative evaluation for DVT via a duplex ultrasound of her lower extremities. Upon arrival to emergency room, patient was suspected of having a urinary tract infection as well as extensive DVT of her left lower extremity. Additional imaging in the emergency room revealed that she had DVTs in her right lower extremity as well. Vascular surgery on consultation and hospitalist group called for further evaluation. Patient seen at bedside. No acute events overnight, but reports she is not sleeping well. She denies any fevers, chils, chest pain, difficulty breathing, abdominal pain, or urinary symptoms. She continues to admit to some leg discomfort particularly when the leg is moved, but when it is kept still she has no problems. Objective: Vitals (See below) General: Lying in bed in no acute distress. HEENT: normocephalic, atraumatic CVS: RRR, normal S1 and S2. Lungs: Mildly diminished breath sounds bilaterally, no wheezes, crackles, rhonchi. Abdomen: Soft,non-tender, non-distended. Extremities: Mild pitting edema bilaterally Neuro: Exam unchanged from admission Imagin02/21/[address] without contrast: There is mild to moderate diffuse fatty infiltration seen throughout the imaged anterior and medial thigh subcutanea. There is mild to moderate diffuse fatty infiltration surrounding the neurovascular bundle of the thigh. This is difficult to fully assess due to the lack of intravenous contrast administration. There are no abnormal air-fluid levels. There is no fracture. There is no destructive osseous lesion. 02/21/19 abdomen/pelvis CT: 1. Free fluid in the abdomen/pelvis with nonpericolonic fatty infiltration in the left hemipelvis and seen with a minimal amount of fluid in the left paracolic gutter and a small to moderate amount of free pelvic fluid. There is no definite evidence of diverticulitis at this time. 2. Abnormal findings involving the left iliac vessels and proximal thigh neurovascular bundle, as described above. Vasculitis cannot be ruled out. Acute DVT cannot be ruled out. 3. There is left groin and left sidewall adenopathy further suggesting an inflammatory process of uncertain etiology. 02/21/19 left lower extremity ultrasound: Extensive abnormal echogenic material fills the imaged deep venous structures fr om the common femoral vein to the popliteal vein inclusive. There is no response to augmentation, and there is inability for coaptation. 02/21/19 right lower extremity ultrasound Extensive right thigh DVT from common femoral vein to the popliteal vein. Assessment and plan: Leg discomfort - likely 2/2 sensitive bilateral lower extremity DVT - possibly 2/2 thrombus extending from IVC filter - Currently, patient remains hemodynamically stable - Duplex ultrasound; noted above - extensive DVTs bilaterally - I had an extensive discussion again with patient as well as her , including risks and benefits of anticoagulation/thrombolysis - advised to her the risks include possibility of intracranial hemorrhage given her prior history, also disability and/or - Dr. Roth, Vascular surgery on consultation - current plan is to have patient undergo thrombolysis later today. 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 (02/2018) - She follows physical therapy/occupational therapy as an outpatient Leukocytosis - possibly 2/2 UTI (See above), possibly 2/2 reactive etiology - from extensive DVT - Hemodynamically stable / Afebrile - Will continue to monitor Renal insufficiency - Improved today s/p 1 liter of fluid yesterday HTN - BP well controlled - c/w Carvedilol - adjusted to include holding parameters Hx of Seizures - c/w Keppra GERD - c/w Omeprazole DVT prophylaxis - c/w full anticoagulation with Heparin drip VS,Fishbone, I+O VS, Fishbone, I+O Laboratory Tests 02/23/19 06:51 Red Blood Count 3.10 L, Mean Corpuscular Volume 74.2 L, Mean Corpuscular Hemoglobin 24.2 L, Mean Corpuscular Hemoglobin Concent 32.6, Red Cell Distribution Width 18.6 H, Calcium Level 8.2 L Vital Signs Date Time Temp Pulse Resp B/P (MAP) Pulse Ox O2 Delivery O2 Flow Rate FiO2 02/23/19 04:21 99.5 94 16 114/57 (76) 94 02/21/19 13:31 Room Air I&O- Last 24 Hours up to 6 AM 02/23/19 06:00 Intake Total 2031 ml Output Total 775 ml Balance 1256 ml GME ATTESTATION GME ATTESTATION My faculty preceptor for this patient encounter was physically present during the encounter and was fully available. All aspects of the patient interview, examination, medical decision making process, and medical care plan development were reviewed and approved by the faculty preceptor. The faculty preceptor is aware and concurs with the plan as stated in the body of this note and will attest to such by his/her cosignature. ATTENDING NOTE I, Tobi Vigil, have independently examined this patient and performed my own physical exam, as well as reviewed the documentation and edited where necessary. I have discussed in detail with the resident / student the findings and plan of treatment as documented by the resident / student and edited their note. I agree with their findings and treatment plan and have edited their documentation. I will continue to follow the patient during this hospital stay. Discussed with vascular surgery this afternoon; he had an extensive discussion with the family at this point will hold off on any thrombolysis - At this point patient's heparin drip will be transition to Lovenox twice a day therapeutic dosing - Will plan to initiate Coumadin therapy - Will start physical therapy and occupational therapy tomorrow - Discharge plan depending on recommendations from above MENDOZA GARCÍA DO Feb 23, 2019 10:33 TOBI VIGIL MD Feb 23, 2019 15:26
[2019-02-23] MEDS: ACETAMINOPHEN TAB 650MG DOSE (2X325MG) PO PRN (11:33)
[2019-02-23] MEDS: ASPIRIN 81 MG ENTERIC TAB PO SCH (11:34)
[2019-02-23] MEDS: OMEPRAZOLE 20 MG CAP PO SCH (11:34)
[2019-02-23] MEDS: CARVedilol 12.5 MG TAB PO SCH ×2 (11:34→21:03)
[2019-02-23] MEDS ORDERED: WARFARIN SOD 5 MG TAB PO SCH (17:00)
[2019-02-23] MEDS ORDERED: BISACODYL 10 MG SUPP PR PRN (17:45)
[2019-02-23] MEDS: ENOXAPARIN 120 MG/0.8 ML SYR (J1650) SC SCH (18:00)
[2019-02-24 04:00] VITALS: BP 103/58
[2019-02-24] MEDS: ENOXAPARIN 120 MG/0.8 ML SYR (J1650) SC SCH ×2 (06:03→20:09)
[2019-02-24 06:21] LABS: HEMATOCRIT 27.1 % (36.0-47.0); MEAN CORPUSCULAR HEMOGLOBIN 25.9 pg (27.0-33.0); MEAN CORPUSCULAR HGB CONC 33.2 g/dl (32.0-36.5); MEAN CORPUSCULAR VOLUME 78.1 fl (80.0-96.0); PLATELET COUNT, AUTOMATED 553 10^3/uL (150-450); RED BLOOD COUNT 3.47 10^6/uL (4.00-5.40); WHITE BLOOD COUNT 13.5 10^3/uL (4.0-10.0)
[2019-02-24 06:34] LABS: INR 1.25; PROTHROMBIN TIME 15.5 SECONDS (11.8-14.0)
[2019-02-24 06:39] LABS: BLOOD UREA NITROGEN 23 MG/DL (7-18); CALCIUM LEVEL 8.5 MG/DL (8.5-10.1); CARBON DIOXIDE LEVEL 22 MEQ/L (21-32); CHLORIDE LEVEL 108 MEQ/L (98-107); CREATININE FOR GFR 0.68 MG/DL (0.55-1.30); GLOMERULAR FILTRATION RATE > 60.0 (>60); GLUCOSE, FASTING 98 MG/DL (70-100); POTASSIUM SERUM 4.5 MEQ/L (3.5-5.1); SODIUM LEVEL 140 MEQ/L (136-145)
[2019-02-24] MEDS: levETIRAcetam **XR** 750MG TABLET (KEPPRA XR) PO SCH ×2 (07:57→20:09)
[2019-02-24] MEDS: tiZANidine 4 MG TAB PO SCH ×2 (07:58→20:09)
[2019-02-24] MEDS: AMANTADINE 100 MG CAP PO SCH ×2 (07:58→12:28)
[2019-02-24 08:00] VITALS: BP 129/58
--- NOTE | 2019-02-24 08:41 | IPNPDOC ---
Text Note Date of Service The patient was seen on 02/24/19. NOTE Subjective: Dr. Roth had a discussion with patient and yesterday afternoon about the risks of thrombolytic therapy and the family ultimately decided to hold off. Dr. Roth gave instructions to bridge patient on lovenox and initiate coumadin which he could follow in the outpatient setting with INR evaluation pending PT/OT evaluation for discharge. Patient is aware and in agreement with this plan. There were no acute events overnight and she presently denies any chest pain, difficulty breathing, nausea, abdominal pain, or urinary symptoms. She continues to have leg pain exacerbated with movement. Objective: Vitals (See below) General: Lying in bed in no acute distress, more communicative today. HEENT: normocephalic, atraumatic CVS: RRR, normal S1 and S2, no murmurs, gallops, or rubs. Lungs: CTAB with better respiratory effort, no wheezes, crackles, rhonchi. Abdomen: Soft, non-tender, non-distended. bowel sounds present. Extremities: Mild pitting edema bilaterally Neuro: Exam unchanged from admission Imagin02/21/[address] without contrast: There is mild to moderate diffuse fatty infiltration seen throughout the imaged anterior and medial thigh subcutanea. There is mild to moderate diffuse fatty infiltration surrounding the neurovascular bundle of the thigh. This is difficult to fully assess due to the lack of intravenous contrast administration. There are no abnormal air-fluid levels. There is no fracture. There is no destructive osseous lesion. 02/21/19 abdomen/pelvis CT: 1. Free fluid in the abdomen/pelvis with nonpericolonic fatty infiltration in t he left hemipelvis and seen with a minimal amount of fluid in the left paracolic gutter and a small to moderate amount of free pelvic fluid. There is no definite evidence of diverticulitis at this time. 2. Abnormal findings involving the left iliac vessels and proximal thigh neurovascular bundle, as described above. Vasculitis cannot be ruled out. Acute DVT cannot be ruled out. 3. There is left groin and left sidewall adenopathy further suggesting an inflammatory process of uncertain etiology. 02/21/19 left lower extremity ultrasound: Extensive abnormal echogenic material fills the imaged deep venous structures from the common femoral vein to the popliteal vein inclusive. There is no response to augmentation, and there is inability for coaptation. 02/21/19 right lower extremity ultrasound Extensive right thigh DVT from common femoral vein to the popliteal vein. Assessment and plan: Leg discomfort - likely 2/2 sensitive bilateral lower extremity DVT - Currently, patient remains hemodynamically stable - Duplex ultrasound; noted above - extensive DVTs bilaterally - Dr. Roth, Vascular surgery on consultation - plan is for lovenox with bridge to warfarin and follow up in Dr. Roth's office pending PT evaluation. - Increasing coumadin from 5mg to 8mg, lovenox teaching ordered Microcytic anemia - possibly 2/2 iron deficiency anemia - s/p 2 units of PRBC transfusion on day of admission and another 2 units yesterday. Checking stool for occult blood. - Hgb stable at 9.0 today. - Checking stool for occult Dysuria - possibly 2/2 UTI - She remains hemodynamically stable and afebrile, her dysuria resolved after one day. - Leukocytosis trending down, may be result of inflammatory response from DVTs - Will D/c ceftriaxone Right-sided hemiparesis - 2/2 ICH (02/2018) - She follows physical therapy/occupational therapy as an outpatient Leukocytosis - possibly 2/2 UTI (See above), possibly 2/2 reactive etiology - from extensive DVT - downtrending, Renal insufficiency - Resolved. HTN - BP well controlled - c/w Carvedilol - adjusted to include holding parameters Hx of Seizures - c/w Keppra GERD - c/w Omeprazole DVT prophylaxis -Continue with lovenox and warfarin for DVT progression. I saw and evaluated the patient. I agree with the findings and plan of care as documented in the above note Migel TADEO, I+O VSMigel, I+O Laboratory Tests 02/24/19 06:01 Red Blood Count 3.47 L, Mean Corpuscular Volume 78.1 L, Mean Corpuscular Hemoglobin 25.9 L, Mean Corpuscular Hemoglobin Concent 33.2, Red Cell Distribution Width 19.2 H, Calcium Level 8.5 Vital Signs Date Time Temp Pulse Resp B/P (MAP) Pulse Ox O2 Delivery O2 Flow Rate FiO2 02/24/19 04:00 99.3 95 21 103/58 (73) 98 02/21/19 13:31 Room Air I&O- Last 24 Hours up to 6 AM 02/24/19 06:00 Intake Total 1467 ml Output Total 645 ml Balance 822 ml MENDOZA GARCÍA DO Feb 24, 2019 08:41 THAI TATUM MD Feb 27, 2019 09:56
[2019-02-24] MEDS: ASPIRIN 81 MG ENTERIC TAB PO SCH (12:28)
[2019-02-24] MEDS: CARVedilol 12.5 MG TAB PO SCH ×2 (12:28→20:09)
[2019-02-24] MEDS: OMEPRAZOLE 20 MG CAP PO SCH (12:29)
[2019-02-24 14:00] VITALS: BP 128/58
[2019-02-24] MEDS ORDERED: WARFARIN SOD 5 MG TAB PO SCH (17:00)
[2019-02-24] MEDS ORDERED: WARFARIN SOD 4 MG TAB PO SCH (17:00)
[2019-02-24 22:00] VITALS: BP 126/60
[2019-02-25 06:00] VITALS: BP 122/65
[2019-02-25] MEDS: ENOXAPARIN 120 MG/0.8 ML SYR (J1650) SC SCH (06:24)
[2019-02-25 06:55] LABS: HEMATOCRIT 27.9 % (36.0-47.0); HEMOGLOBIN 8.9 g/dl (12.0-15.5); MEAN CORPUSCULAR HGB CONC 31.9 g/dl (32.0-36.5); MEAN CORPUSCULAR VOLUME 78.4 fl (80.0-96.0); PLATELET COUNT, AUTOMATED 622 10^3/uL (150-450); RED BLOOD COUNT 3.56 10^6/uL (4.00-5.40); WHITE BLOOD COUNT 14.8 10^3/uL (4.0-10.0)
[2019-02-25 07:09] LABS: INR 1.3; PROTHROMBIN TIME 15.9 SECONDS (11.8-14.0)
[2019-02-25 07:24] LABS: BLOOD UREA NITROGEN 22 MG/DL (7-18); CALCIUM LEVEL 9.1 MG/DL (8.5-10.1); CARBON DIOXIDE LEVEL 23 MEQ/L (21-32); CHLORIDE LEVEL 106 MEQ/L (98-107); CREATININE FOR GFR 0.71 MG/DL (0.55-1.30); GLOMERULAR FILTRATION RATE > 60.0 (>60); GLUCOSE, FASTING 95 MG/DL (70-100); SODIUM LEVEL 138 MEQ/L (136-145)
[2019-02-25] MEDS: AMANTADINE 100 MG CAP PO SCH ×2 (08:03→12:08)
[2019-02-25] MEDS: levETIRAcetam **XR** 750MG TABLET (KEPPRA XR) PO SCH (08:03)
[2019-02-25] MEDS: tiZANidine 4 MG TAB PO SCH (08:04)
[2019-02-25] MEDS ORDERED: LOVE0.01 SC (11:45)
[2019-02-25] MEDS ORDERED: COUM1TAB14 PO (11:45)
[2019-02-25] MEDS: ASPIRIN 81 MG ENTERIC TAB PO SCH (12:08)
[2019-02-25] MEDS: OMEPRAZOLE 20 MG CAP PO SCH (12:08)
[2019-02-25 12:09] VITALS: BP 128/78
[2019-02-25] MEDS: CARVedilol 12.5 MG TAB PO SCH (12:09)
[2019-02-25] MEDS ORDERED: INFLUENZA QUADRIVALENT PF VACCINE 0.5ML SYRINGE (90686) IM ONE (14:00)
--- NOTE | 2019-02-25 18:59 | DS.PDOC ---
Discharge Summary General Date of Admission Feb 21, 2019 at 13:25 Date of Discharge 02/25/19 Attending Physician: THAI TATUM MD Specialist/Consultants Involve: Michel Roth MD Specialist/Consultants Involve PCP: Eran cordero Discharge Summary PROCEDURES PERFORMED DURING STAY: None. ADMITTING/DISCHARGE DIAGNOSES: Bilateral DVT's IVC filter placement Seizures 2/2 eclampsia Intracranial Hemorrhage secondary to seizures from ecclampsia Obesity Hypertension GERD leukocytosis Right sided hemiparesis microcytic anemia COMPLICATIONS/CHIEF COMPLAINT: lower extremity swelling/discomfort HISTORY OF PRESENT ILLNESS: Patient is a 33 year old female presenting with chief complaint of left lower extremity swelling/pain for one week along with some lower abdominal pain, fevers, chills, weakness, malaise, poor appetite, and dysuria. Work up in the ER revealed LLE DVT, a hgb of 6.8 with low iron, WBC of 17, and a cloudy UA with some WBCs. Dr. Roth was consulted for further management. Below is a brief synopsis of patient's pertinent recent past medical history: Patient had a on 02/14/2018 and was stable on discharge home. On 02/26/18, the patient's returned home from work and found her un responsive. She was brought to [facility] ED where she needed to be intubated and a CT scan showed intracranial hemorrhage with transtentorial herniation so the patient was transferred to [facility] for craniotomy to relieve her intracranial pressure however patient was left with R-sided hemiparesis. This was thought to be due to a seizure secondary to the patient's eclampsia. She continued to have recurrent seizures and is seeing Dr. Marin for same. While working with rehab, it was noticed she was having lower extremity swelling and after an ultrasound revealed she had DVT's, an IVC filter was placed and she was started on fondoparinoux. She was on the for 9 months and it was discontinued by [facility] approximately 4 weeks ago. She underwent a right lower extremity U/S on 01/19 that was negative for a DVT. HOSPITAL COURSE: Patient was placed on heparin drip for 48 hours but after d iscussion with Dr. Roth and due to the history of intracranial hemorrhage with the risk for possible rebleed the family ultimately elected to pursue more conservative treatment with warfarin for her bilateral DVT's. Discharge was delayed secondary to PT clearance for further PT/OT and speach therapy outpatient. The patient was started on SQ lovenox injections to bridge while her INR level became therapeutic. It was still subtherapeutic on discharge so patient was given lab slip for recheck in 2 days with instructions to follow up weekly at Dr. Roth's office for repeated INR checks and coumadin adjustments. DISCHARGE MEDICATIONS: Please see below. ALLERGIES: Please see below. Vitals: (see below) General: 33 year old female who appears stated age sitting in bed HEENT: Normocephalic, atraumatic. EOMI. Moist mucous membranes. No pharyngeal erythema or uvular deviation. Neck: No JVD, lymphadenopathy, or thyromegaly. Cardiac: RRR, Normal S1 and S2, No murmurs, gallops, rubs. Pulm: Clear to auscultation b/l. Symmetric thorax. No wheezing, crackles, rhonchi Abd: Bowel Sounds present. Abdomen is soft, non-tender, non-distended. No guarding, rebound tenderness, or rigidity. Ext: Bilateral lower extremity edema. Difficult to palpate LE pulses secondary to patient body habitus. Neuro: Alert and oriented. CN 2-12 intact. RUE+0/5, RLE+1/5. LUE +5/5, LLE +3/5. Sensation intact in LUE, LLE. Diminished sensation in RUE and RLE. Psych: euthymic affect today LABORATORY DATA: Please see below. IMAGIN02/21/[address] without contrast: There is mild to moderate diffuse fatty infiltration seen throughout the imaged anterior and medial thigh subcutanea. There is mild to moderate diffuse fatty infiltration surrounding the neurovascular bundle of the thigh. This is difficult to fully assess due to the lack of intravenous contrast a dministration. There are no abnormal air-fluid levels. There is no fracture. There is no destructive osseous lesion. 02/21/19 abdomen/pelvis CT: 1. Free fluid in the abdomen/pelvis with nonpericolonic fatty infiltration in the left hemipelvis and seen with a minimal amount of fluid in the left para colic gutter and a small to moderate amount of free pelvic fluid. There is no definite evidence of diverticulitis at this time. 2. Abnormal findings involving the left iliac vessels and proximal thigh neurovascular bundle, as described above. Vasculitis cannot be ruled out. Acute DVT cannot be ruled out. 3. There is left groin and left sidewall adenopathy further suggesting an inflammatory process of uncertain etiology. 02/21/19 left lower extremity ultrasound: Extensive abnormal echogenic material fills the imaged deep venous structures from the common femoral vein to the popliteal vein inclusive. There is no response to augmentation, and there is inability for coaptation. 02/21/19 right lower extremity ultrasound Extensive right thigh DVT from common femoral vein to the popliteal vein. PROGNOSIS: fair ACTIVITY: Per PT instructions/recommendations. DIET: As tolerated. DISCHARGE PLAN: Discharge home DISCHARGE INSTRUCTIONS: 1. Please follow up with PCP in the next 7-10 days 2. Please repeat INR on 02/27 and follow up with Dr. Roth's office this week for coumadin adjustments. 3. Please continue PT/OT and speech therapy outpatient. DISCHARGE CONDITION: Stable. I saw and evaluated the patient. I agree with the findings and plan of care as documented in the documenters note. I spent 45 minutes coordinating this patient's discharge. Vital Signs/I&Os Vital Signs Date Time Temp Pulse Resp B/P (MAP) Pulse Ox O2 Delivery O2 Flow Rate FiO2 02/25/19 12:09 96 128/78 02/25/19 06:00 98.1 18 99 02/21/19 13:31 Room Air I&O- Last 24 Hours up to 6 AM 02/25/19 06:00 Intake Total 1080 ml Output Total 400 ml Balance 680 ml Laboratory Data Labs 24H Laboratory Tests 2 02/25/19 05:38: Prothrombin Time 15.9H, Prothromb Time International Ratio 1.30, Anion Gap 9, Glomerular Filtration Rate > 60.0, Blood Urea Nitrogen 22H, Creatinine 0.71, Sodium Level 138, Potassium Level 4.0, Chloride Level 106, Carbon Dioxide Level 23, Calcium Level 9.1 02/25/19 05:39: Nucleated Red Blood Cells % (auto) 0.0 CBC/BMP Laboratory Tests 02/25/19 05:38 Calcium Level 9.1 02/25/19 05:39 Red Blood Count 3.56 L, Mean Corpuscular Volume 78.4 L, Mean Corpuscular Hemoglobin 25.0 L, Mean Corpuscular Hemoglobin Concent 31.9 L, Red Cell Distribution Width 20.8 H Microbiology Microbiology 02/21/19 Blood Culture - Preliminary, Resulted No Growth after 72 hours. All specime... 02/21/19 Blood Culture - Preliminary, Resulted No Growth after 72 hours. All specime... 02/21/19 Respiratory Virus Panel (PCR) ([facility]) - Final, Complete 02/22/19 Urine Culture - Final, Complete 02/21/19 Urine Culture - Final, Complete Discharge Medications Scheduled Amantadine HCl (Amantadine) 100 Mg Tablet, 100 MG PO BID, (Reported) TAKES AT 0800/1200 Aspirin (Aspir 81) 81 Mg Tablet.dr, 81 MG PO DAILY, (Reported) TAKES AT NOON Carvedilol (Carvedilol) 12.5 Mg Tablet, 12.5 MG PO BID, (Reported) TAKES AT 1200/2000 Enoxaparin Sodium (Lovenox) 120 Mg/0.8 Ml Syringe, 115 MG SC Q12H Please inject 120mg using 0.8 ML syringe subcutaneously every 12 hours until instructed to stop by Dr. Roth Levetiracetam (Levetiracetam ER) 750 Mg Tab.er.24h, 750 MG PO BID, (Reported) TAKES AT 0800/2000 Omeprazole (Omeprazole) 40 Mg Capsule.dr, 40 MG PO DAILY, (Reported) TAKES AT NOON Tizanidine HCl (Tizanidine HCl) 2 Mg Capsule, 2 MG PO DAILY, (Reported) Tizanidine HCl (Tizanidine HCl) 2 Mg Capsule, 4 MG PO QHS, (Reported) Warfarin Sodium (Coumadin) 4 Mg Tablet, 8 MG PO DAILY@17 Please take two 4 mg tablets by mouth every evening at 5PM. Allergies Coded Allergies: iodine (Verified Allergy, Intermediate, hives, 12/10/18) GME ATTESTATION GME ATTESTATION My faculty preceptor for this patient encounter was physically present during the encounter and was fully available. All aspects of the patient interview, examination, medical decision making process, and medical care plan development were reviewed and approved by the faculty preceptor. The faculty preceptor is aware and concurs with the plan as stated in the body of this note and will attest to such by his/her cosignature. MENDOZA GARCÍA DO Feb 25, 2019 18:59 THAI TATUM MD Feb 26, 2019 11:32
--- NOTE | 2019-02-26 18:14 | ROOPDOC ---
[facility] Report Of Operation Report of Operation DATE OF PROCEDURE: 02/21/2019 PREPROCEDURE DIAGNOSES: Bilateral lower extremity DVT, anemia, poor IV access POSTPROCEDURE DIAGNOSES: Bilateral lower extremity DVT, anemia, poor IV access PROCEDURE: Ultrasound guided left brachial vein cannulation. Ultrasound-guided left basilic vein cannulation. Ultrasound-guided right basilic vein cannulation with placement of a midline catheter. SURGEON: Dr. Raissa Roth MD WATER SOFTENER INSTALLER: None ANESTHESIA: Local with 10 cc of 1 % lidocaine. ESTIMATED BLOOD LOSS: Approximately 5 mL. IVF: 50 cc. COMPLICATIONS: None. DRAINS:None. INDICATION: Patient is a 33-year-old female with previous cerebral hemorrhage and cerebral vascular accident who presents with thrombosis of her IVC filter and bilateral lower extremity DVT. Patient is also anemic and has poor IV a ccess and requires access for transfusion of blood products as well as medication. Patient will undergo placement of a midline catheter. Risks benefits and alternative treatment options were discussed with the patient. Benefits included but were not limited to access for medications and blood products. Alternative treatment options included but were not limited to no intervention. Risks included but were not limited to infection, bleeding, pneumothorax, hemothorax, cerebrovascular accident, myocardial infarction, pulmonary embolus, DVT, inability to place the catheter in the right or left arm necessitating placement in the right or left common femoral vein, loss of limb, loss of life and poor outcome. Patient's questions were answered. Patient understands, accepts these risks and consents to proceed with placement of a midline catheter PROCEDURE: Patient was placed supine and the left arm was prepped and draped in a standard surgical fashion, after which ultrasound was used to evaluate the left brachial vein which was noted to be easily compressible, widely patent and free of thrombus. A time-out was then performed confirming the appropriate procedure, patient and laterality. Ultrasound was then used to guide cannulation of the left brachial vein with concurrent real time ultrasound guided cannulation with visualization of the needle entering into the [right internal jugular] vein, after the overlying skin was anesthetized with lidocaine. There was difficulty passing the wire into the left brachial vein. Ultrasound was then used to guide cannulation of the left basilic vein again with difficulty passing the wire. The right arm was then prepped and draped and the ultrasound was used to guide cannulation of the right basilic vein with easy passage of the wire. The right basilic vein was dilated and a midline catheter was then placed over the wire. Both ports were aspirated noted to aspirate easily and then flushed with heparinized saline. Dressings were applied. Dr. Roth was present for and directed the entire case. The right basilic vein midline is stable for use. Michel Roth MD Feb 23, 2019 21:23
--- NOTE | 2019-02-26 19:13 | CR.PDOC ---
Subjective General Date/Time Seen The patient was seen on 02/21/19 at 19:58. Subject Chief Complaint/History The patient is a 33-year-old female admitted with bilateral lower extremity DVT, pain, swelling and inferior vena cava thrombosis. Patient was recently discontinued from her anticoagulation from her previous left lower extremity DVT. Patient had an IVC filter placed previously. Approximately 1 week ago patient developed pain and swelling in her left lower extremity. Patient was brought to the emergency room and found to have bilateral lower extremity DVT which was extensive as well as thrombosis of her inferior vena cava. Current Medications Current Medications Current Medications Medications (Trade) Dose Ordered Sig/Karie Route PRN Reason Start Time Stop Time Status Last Admin Dose Admin Acetaminophen (Tylenol Tab) 650 mg Q4H PRN PO PAIN OR FEVER 02/21/19 13:00 02/25/19 14:16 DC 02/23/19 11:33 Amantadine HCl (Symmetrel) 100 mg BID@0800,1200 PO 02/21/19 12:00 02/25/19 14:16 DC 02/25/19 12:08 Aspirin (Ecotrin) 81 mg DAILY@1200 PO 02/21/19 12:00 02/25/19 14:16 DC 02/25/19 12:08 Bisacodyl (Dulcolax Suppository) 10 mg DAILYPRN PRN LA BOWEL CARE/CONSTIPATION 02/23/19 17:45 02/25/19 14:16 DC 02/23/19 17:46 Carvedilol (COReg) 12.5 mg BID@1200,2000 PO 02/21/19 12:00 02/25/19 14:16 DC 02/25/19 12:09 Ceftriaxone Sodium 1 gm/ Dextrose 50 ml @ 100 mls/hr DAILY IV 02/22/19 09:00 02/24/19 08:42 DC 02/23/19 09:42 Enoxaparin Sodium (Lovenox) 115 mg Q12H SC 02/23/19 19:00 02/25/19 14:16 DC 02/25/19 06:24 Heparin Sodium (Porcine) (Heparin) ASDIRECTED PRN IV SEE LABEL COMMENTS 02/21/19 13:15 02/23/19 15:31 DC 02/22/19 11:10 Heparin Sodium (Porcine) 86909 units/IV Miscellaneous Supplies 250 ml @ 0 mls/hr Q0M IV 02/21/19 13:30 02/23/19 15:31 DC 02/23/19 04:13 Home Med (Med Rec Complete!) ASDIRECTED XX 02/21/19 12:30 02/21/19 12:37 DC Levetiracetam (Keppra Xr) 750 mg BID@0800,2000 PO 02/21/19 13:30 02/25/19 14:16 DC 02/25/19 08:03 Non-Formulary Medication (Heparin Iv Rate Change Documentation ml/ Hr) ASDIRECTED XX 02/21/19 13:15 02/23/19 15:31 DC 02/23/19 01:40 Omeprazole (PriLOSEC) 40 mg DAILY@1200 PO 02/21/19 12:00 02/25/19 14:16 DC 02/25/19 12:08 Tizanidine HCl (Zanaflex) 2 mg DAILY@0800 PO 02/22/19 08:00 02/25/19 14:16 DC 02/25/19 08:04 Tizanidine HCl (Zanaflex) 4 mg QHS PO 02/21/19 21:00 02/25/19 14:16 DC 02/24/19 20:09 Warfarin Sodium (Coumadin) 5 mg DAILY@17 PO 02/23/19 17:00 02/24/19 11:11 DC 02/23/19 18:00 Warfarin Sodium (Coumadin) 8 mg DAILY@17 PO 02/24/19 17:00 02/24/19 18:17 DC Warfarin Sodium (Coumadin) 8 mg DAILY@17 PO 02/24/19 17:00 02/25/19 14:16 DC 02/24/19 18:27 Allergies Coded Allergies: iodine (Verified Allergy, Intermediate, hives, 12/10/18) Home Medications Home Medications Scheduled Amantadine HCl (Amantadine) 100 Mg Tablet, 100 MG PO BID, (Reported) TAKES AT 0800/1200 Aspirin (Aspir 81) 81 Mg Tablet.dr, 81 MG PO DAILY, (Reported) TAKES AT NOON Carvedilol (Carvedilol) 12.5 Mg Tablet, 12.5 MG PO BID, (Reported) TAKES AT 1200/2000 Enoxaparin Sodium (Lovenox) 120 Mg/0.8 Ml Syringe, 115 MG SC Q12H Please inject 120mg using 0.8 ML syringe subcutaneously every 12 hours until instructed to stop by Dr. Roth Levetiracetam (Levetiracetam ER) 750 Mg Tab.er.24h, 750 MG PO BID, (Reported) TAKES AT 0800/2000 Omeprazole (Omeprazole) 40 Mg Capsule.dr, 40 MG PO DAILY, (Reported) TAKES AT NOON Tizanidine HCl (Tizanidine HCl) 2 Mg Capsule, 2 MG PO DAILY, (Reported) Tizanidine HCl (Tizanidine HCl) 2 Mg Capsule, 4 MG PO QHS, (Reported) Warfarin Sodium (Coumadin) 4 Mg Tablet, 8 MG PO DAILY@17 Please take two 4 mg tablets by mouth every evening at 5PM. Past Medical History Medical History Seizures and intracranial hemorrhage secondary to eclampsia Surgical History 2 Craniotomy Bilateral tubal ligation Family History Significant Family History: No pertinent family hx No family history of clotting disorders Social History * Smoker: Denies Alcohol: Denies Drugs: denies Recent Travel/Sick Contacts: Denies: Recent travel, Recent sick contacts Psychosocial History: No pertinent psych hx Review of Systems Review of Systems General: Denies: Chills, Night Sweats, Fatigue, Malaise, Normal Appetite Constitutional: Denies: Chills, Fever, Malaise, Night Sweats, Weakness, Fatigue, Weight Loss, Lethargy Eyes: Denies: Pain, Vision change, Conjunctivae inflammation, Eyelid inflammation, Redness HEENT: Denies: Head Aches, Ear Pain, Dysphagia, Sinus Congestion, Post Nasal Drip, Sore Throat, Epistaxis Skin: Denies: Rash, Lesions, Jaundice, Bruising, Itching, Dry, Breakdown, Nail Changes Pulmonary: Denies: Dyspnea, Cough, Pleuritic Chest Pain Cardiovascular: Denies: Chest Pain, Palpitations, Orthopnea, Paroxysmal Noc. Dyspnea, Edema, Lt Headedness Gastrointestinal: Denies: Nausea, Vomiting, Abdominal Pain, Diarrhea, Constipation, Melena, Hematochezia Genitourinary: Denies: Dysuria, Frequency, Incontinence, Hematuria, Retention Hematologic: Denies: Bruising, Bleeding Excessively, Petecchia, Purpura, Enlarged Lymph Nodes ENDOCRINE: Denies: Polydipsia, Polyphagia, Polyuria, Heat Intolerance, Cold Intolerance Musculoskeletal: Denies: Neck Pain, Back Pain, Shoulder Pain, Arm Pain, Hand Pain, Leg Pain, Foot Pain, Joint Pain, Muscle Pain, Spasms Neurological: Denies: Weakness, Numbness, Incoordination, Change in speech, Confusion, Seizures Psych: Reports: Mood Normal, Other Psych; Denies: Anxiety, Depression, Memory Issues, Thoughts of Self Harm, Anger, Thoughts of Harming Other VS, I&O, 24H, Fishbone Vital Signs/I&O Vital Signs Date Time Temp Pulse Resp B/P (MAP) Pulse Ox O2 Delivery O2 Flow Rate FiO2 02/25/19 12:09 96 128/78 02/25/19 06:00 98.1 18 99 02/21/19 13:31 Room Air I&O- Last 24 Hours up to 6 AM 02/26/19 05:59 Intake Total 120 ml Balance 120 ml Laboratory Data 24H LABS Laboratory Tests 2 02/26/19 09:26: Lab Scanned Report Transfusion Record Microbiology Microbiology 02/21/19 Blood Culture - Final, Complete NO GROWTH AFTER 5 DAYS 02/21/19 Blood Culture - Final, Complete NO GROWTH AFTER 5 DAYS 02/21/19 Respiratory Virus Panel (PCR) ([facility]) - Final, Complete 02/22/19 Urine Culture - Final, Complete 02/21/19 Urine Culture - Final, Complete Objective Physical Examination General Exam: Positive: Alert, Cooperative, No Acute Distress Eye Exam: Positive: PERRLA, Conjunctiva & lids normal, EOMI ENT Exam: Positive: Atraumatic, Mucous membr. moist/pink, Pharynx Normal, Tongue Midline, Nares Patent Neck Exam: Positive: Supple, +2 carotid pulse wo bruit Chest Exam: Positive: Clear to auscultation Heart Exam: Positive: Rate Normal Telemetry: Positive: No significant arrhythmia, Sinus Abdomen Exam: Positive: Normal bowel sounds Extremity Exam: Positive: Normal pulses Skin Exam: Positive: Nl turgor and temperature Neuro Exam: Positive: Cranial Nerves 3-12 NL, Other (patient with right upper and lower extremity paresis) Psych Exam: Positive: Mental status NL, Mood NL, Memory Intact, Oriented x 3 Assessment/Plan Assessment Patient is a 33-year-old female with bilateral lower extremity DVT and thrombosed inferior vena cava with an inferior vena cava filter in place. Patient recently stopped her anticoagulation and is now thrombosed her inferior vena cava as well as her bilateral lower extremity. Patient has no evidence of mal perfusion of her lower extremities. Plan Patient will be started on a heparin drip and monitored closely for signs of bleeding. Patient has previous cerebral hemorrhage and is high risk for thrombolysis. Patient will be on a heparin drip and we will follow the progress of her bleeding and her DVTs in her lower extremities and decide whether she is a candidate for thrombolysis. Michel Roth MD Feb 26, 2019 19:13
--- NOTE | 2019-02-27 01:52 | IPNPDOC ---
Text Note Date of Service The patient was seen on 02/23/19. NOTE The options were discussed with the patient and her and the recommendation was to undergo anticoagulation with Coumadin. Patient will be started on Lovenox and transitioned to Coumadin as an outpatient. Patient is too high risk for thrombolysis and her symptoms in her lower extremities are not significant enough to warrant the risks of a thrombolysis. All of the patient's questions and her 's questions were answered. Patient will require at least 3 months of Coumadin at which time she may be transitioned to a different form of anticoagulation. Patient will follow-up in the office in 2 weeks for repeat evaluation. Michel Roth MD Feb 27, 2019 01:52
== END 2019-02-25 14:15 | disposition home or self-care (01) | DRG 300 ==
LOC: M ED 06:46 → M ED INP 13:25 → M ICU 14:35 → M MSPAV 02-24 14:45
PROVIDERS: ADMIT Internal Medicine; ATTEND Internal Medicine
PROC: 30233N1 Transfusion of Nonautologous Red Blood Cells into Peripheral Vein, Percutaneous Approach (ICD-10-PCS; principal; 2019-02-21)
PROC: 05H Upper Veins, Insertion (ICD-10-PCS; 2019-02-21)
DX: I82.4Y1 Acute embolism and thrombosis of unspecified deep veins of right proximal lower extremity (principal); I69.251 Hemiplegia and hemiparesis following other nontraumatic intracranial hemorrhage affecting right dominant side; K21.9 Gastro-esophageal reflux disease without esophagitis; D72.829 Elevated white blood cell count, unspecified; E66.9 Obesity, unspecified; I10 Essential (primary) hypertension; D50.9 Iron deficiency anemia, unspecified; R30.0 Dysuria; R56.9 Unspecified convulsions; Z79.82 Long term (current) use of aspirin; Z79.899 Other long term (current) drug therapy; Z88.8 Allergy status to other drugs, medicaments and biological substances

== ENCOUNTER → 2019-02-27 | Outpatient (CLI) | payer OTHER, MEDICAID ==
[~2019-02-27] MED LIST changes: +ASPI81TA85 PO; +COUM1TAB14 PO; +LEVE750XR PO; +LOVE0.01 SC; +TIZA2CAP PO
[2019-02-27 10:39] LABS: INR 1.89; PROTHROMBIN TIME 21.5 SECONDS (11.8-14.0)
== END ==
LOC: M LAB 09:44
PROVIDERS: ATTEND Surgery Vascular Surgery
DX: I82.402 Acute embolism and thrombosis of unspecified deep veins of left lower extremity (principal)

== ENCOUNTER → 2019-03-02 | Outpatient (CLI) | payer OTHER, MEDICAID ==
[2019-03-02 12:28] LABS: INR 2.15; PROTHROMBIN TIME 23.8 SECONDS (11.8-14.0)
== END ==
LOC: M LAB 11:19
PROVIDERS: ATTEND Surgery Vascular Surgery
DX: I82.402 Acute embolism and thrombosis of unspecified deep veins of left lower extremity (principal)

== ENCOUNTER → 2019-03-09 | Outpatient (CLI) | payer OTHER, MEDICAID ==
[2019-03-09 12:21] LABS: INR 3.52; PROTHROMBIN TIME 35.3 SECONDS (11.8-14.0)
== END ==
LOC: M LAB 11:12
PROVIDERS: ATTEND Physician Assistant
DX: I82.402 Acute embolism and thrombosis of unspecified deep veins of left lower extremity (principal)

== ENCOUNTER → 2019-03-09 | Outpatient (RCR) | payer OTHER, MEDICAID | LOC: M PT 02-10 09:44 → M OT 02-16 08:47 → M PT 02-19 09:54 → M OT 03-03 08:46 → M ST 03-05 08:48 → M PT 03-05 08:48 | PROVIDERS: ATTEND Family Medicine | DX: I69.251 Hemiplegia and hemiparesis following other nontraumatic intracranial hemorrhage affecting right dominant side (principal) ==

== ENCOUNTER → 2019-04-09 | Outpatient (RCR) | payer OTHER, MEDICAID ==
[~2019-04-09] MED LIST changes: -OMEP40CA2 PO; +OMEP40CA97 PO
== END | disposition home or self-care (01) ==
LOC: M PT 03-10 09:39 → M ST 03-10 10:45 → M PT 03-12 09:48 → M ST 03-12 10:45 → M PT 03-17 09:35 → M ST 03-17 09:36 → M PT 03-19 09:44 → M ST 03-19 09:56 → M PT 03-23 10:00 → M ST 03-24 10:24 → M PT 03-26 10:00 → M ST 03-26 10:45 → M PT 03-30 10:00 → M ST 03-31 10:45 → M PT 04-02 09:51 → M ST 04-02 09:51 → M PT 04-06 07:18 → M ST 04-07 10:45 → M PT 09:39 → M ST 10:45
PROVIDERS: ATTEND Family Medicine
DX: I69.251 Hemiplegia and hemiparesis following other nontraumatic intracranial hemorrhage affecting right dominant side (principal)

== ENCOUNTER 2019-04-18 05:57 | Emergency (ER) | payer OTHER, MEDICAID ==
[~2019-04-18] VITALS: Ht 160 cm; Wt 100.0 kg
[2019-04-18] MEDS ORDERED: ELIQ5TAB PO (06:12)
[2019-04-18] MEDS ORDERED: levETIRAcetam INJection 500 MG in D5W MINI-BAG PLUS 100 ML IV ONE (06:30)
[2019-04-18] MEDS ORDERED: NS 500 ML IV ONE (06:30)
[2019-04-18 06:45] LABS: BASO % 0.3 % (0.0-1.0); EOS # 0.1 10^3/uL (0.0-0.5); EOS % 1.9 % (0.0-3.0); HEMATOCRIT 38.3 % (36.0-47.0); HEMOGLOBIN 11.7 g/dl (12.0-15.5); LYMPH # 2.5 10^3/uL (1.5-5.0); LYMPH % 43.1 % (24.0-44.0); MEAN CORPUSCULAR HEMOGLOBIN 26.4 pg (27.0-33.0); MEAN CORPUSCULAR HGB CONC 30.5 g/dl (32.0-36.5); MEAN CORPUSCULAR VOLUME 86.5 fl (80.0-96.0); MONO # 0.4 10^3/uL (0.0-0.8); NEUTROPHILS # 2.8 10^3/uL (1.5-8.5); NEUTROPHILS % 48.5 % (36.0-66.0); PLATELET COUNT, AUTOMATED 270 10^3/uL (150-450); RED BLOOD COUNT 4.43 10^6/uL (4.00-5.40); WHITE BLOOD COUNT 5.9 10^3/uL (4.0-10.0)
--- NOTE | 2019-04-18 07:01 | REPVR ---
PROCEDURE INFORMATION: Exam: CT Head Without Contrast Exam date and time: 04/18/2019 6:18 AM Clinical history: 34 years old, female; Other: Seizure; Additional info: Sz on coumadin TECHNIQUE: Imaging protocol: Computed tomography of the head without contrast. Radiation optimization: All CT scans at this facility use at least one of these dose optimization techniques: automated exposure control; mA and/or kV adjustment per patient size (includes targeted exams where dose is matched to clinical indication); or iterative reconstruction. COMPARISON: CT Head without contrast 11/05/2018 1:42 PM FINDINGS: Tubes, catheters and devices: A ventriculostomy catheter enters the right frontal region. The tip crosses the midline and is located in the body of the left lateral ventricle, unchanged in position. Brain: There is a parenchymal defect in the left frontal lobe, left basal ganglia, and left subinsular region which communicates with the left lateral ventricle. There is low attenuation in the white matter and hyperdensity in the cortex adjacent to the defect which appears unchanged from the prior exam. There is low attenuation in the white matter in the right frontal lobe, without significant change. There is no evidence of acute hemorrhage. Ventricles: There is distortion and mild dilation of the left lateral ventricle, unchanged in size and configuration compared to the prior exam. The right lateral ventricle, third ventricle, and fourth ventricle are nondilated. Bones/joints: There is evidence of a large left frontotemporal parietal craniotomy with cranioplasty. There is mixed density extra-axial tissue in the left frontal region which seems to be related to the cranioplasty, and is unchanged in appearance compared to the prior exam. Sinuses: The visualized paranasal sinuses are clear. Mastoid air cells: The mastoid air cells are clear. Soft tissues: Unremarkable. IMPRESSION: Stable appearance of brain. No evidence of acute hemorrhage. Electronically signed by: Cee Kiran On 04/18/2019 07:01:16 AM
[2019-04-18 07:05] LABS: INR 1.11
[2019-04-18 07:06] LABS: PARTIAL THROMBOPLASTIN TIME 28.7 SECONDS (25.0-38.4)
[2019-04-18 07:13] LABS: BLOOD UREA NITROGEN 20 MG/DL (7-18); CALCIUM LEVEL 8.8 MG/DL (8.5-10.1); CARBON DIOXIDE LEVEL 29 MEQ/L (21-32); CHLORIDE LEVEL 109 MEQ/L (98-107); CREATININE FOR GFR 0.88 MG/DL (0.55-1.30); GLOMERULAR FILTRATION RATE > 60.0 (>60); GLUCOSE, FASTING 83 MG/DL (70-100); POTASSIUM SERUM 4.1 MEQ/L (3.5-5.1); SODIUM LEVEL 141 MEQ/L (136-145)
[2019-04-18] MEDS ORDERED: KEPP250T5 PO (08:34)
[2019-04-18] MEDS ORDERED: levETIRAcetam 250MG TABLET (KEPPRA) PO ONE (09:00)
[2019-04-18 09:31] VITALS: BP 166/82
== END 2019-04-18 09:42 | disposition home or self-care (01) ==
LOC: M ED 05:57
DX: G40.909 Epilepsy, unspecified, not intractable, without status epilepticus (principal); K21.9 Gastro-esophageal reflux disease without esophagitis; I10 Essential (primary) hypertension; I63.9 Cerebral infarction, unspecified; Z88.8 Allergy status to other drugs, medicaments and biological substances; Z79.82 Long term (current) use of aspirin; Z79.899 Other long term (current) drug therapy
CPT/HCPCS: 70450; 80048; 80180; 85025; 85610; 85730; 96361; 96365; 99284; J1953

== ENCOUNTER 2019-05-05 09:40 | Outpatient (RCR) | payer OTHER, MEDICAID ==
[~2019-05-05 09:40] MED LIST changes: +ELIQ5TAB PO; +KEPP250T5 PO
== END 2019-05-09 ==
LOC: M ST 09:40
PROVIDERS: ATTEND Family Medicine
DX: Z51.89 Encounter for other specified aftercare (principal)

== ENCOUNTER 2019-06-01 10:46 | Outpatient (RCR) | payer OTHER, MEDICAID | END 2019-06-09 | LOC: M ST 10:46 | PROVIDERS: ATTEND Family Medicine | DX: Z51.89 Encounter for other specified aftercare (principal); I61.5 Nontraumatic intracerebral hemorrhage, intraventricular; R56.9 Unspecified convulsions ==

== ENCOUNTER 2019-07-09 10:46 | Outpatient (RCR) | payer OTHER, MEDICAID | END 2019-07-10 | LOC: M ST 10:46 | PROVIDERS: ATTEND Family Medicine | DX: Z47.89 Encounter for other orthopedic aftercare (principal) ==

== ENCOUNTER 2019-07-24 10:36 | Emergency (ER) | payer OTHER, MEDICAID ==
[~2019-07-24] VITALS: Ht 182.9 cm; Wt 95.5 kg
[2019-07-24 10:49] VITALS: BP 140/90
[2019-07-24] MEDS ORDERED: LEVE250T5 (10:57)
[2019-07-24] MEDS ORDERED: TRAZ-252 PO (10:57)
--- NOTE | 2019-07-24 12:29 | REP ---
Clinical: Trauma. Technique: Neutral and frog lateral views of the right femur. Findings: No acute fracture dislocation. Skeletal structures, joint spaces, and surrounding soft tissues are normal. No subcutaneous emphysema or foreign body. Impression: No acute fracture or dislocation. Electronically Signed by Cuauhtemoc Winters MD 07/24/2019 12:20 P
--- NOTE | 2019-07-24 12:30 | REP ---
Clinical: Trauma. Technique: AP and lateral views of the right forearm. Findings: No acute fracture dislocation. Skeletal structures, joint spaces, and surrounding soft tissues are normal. No subcutaneous emphysema or foreign body. Impression: No acute fracture or dislocation. Electronically Signed by Cuauhtemoc Winters MD 07/24/2019 12:21 P
--- NOTE | 2019-07-24 12:31 | REP ---
Clinical: Trauma. Technique: AP, lateral, oblique views right hand . Findings: osteopenia and degenerative changes. No obvious acute fracture or dislocation. Impression: No obvious acute fracture or dislocation. Electronically Signed by Cuauhtemoc Winters MD 07/24/2019 12:23 P
== END 2019-07-24 12:40 | disposition home or self-care (01) ==
LOC: M ED 10:36
DX: S73.101A Unspecified sprain of right hip, initial encounter (principal); S60.221A Contusion of right hand, initial encounter; W01.0XXA Fall on same level from slipping, tripping and stumbling without subsequent striking against object, initial encounter; Y92.019 Unspecified place in single-family (private) house as the place of occurrence of the external cause; Z79.82 Long term (current) use of aspirin; Z79.899 Other long term (current) drug therapy

== ENCOUNTER 2019-08-04 11:00 | Outpatient (RCR) | payer OTHER, MEDICAID ==
[~2019-08-04 11:00] MED LIST changes: +LEVE250T5
== END 2019-08-08 ==
LOC: M ST 11:00
PROVIDERS: ATTEND Family Medicine
DX: Z47.89 Encounter for other orthopedic aftercare (principal); Z86.73 Personal history of transient ischemic attack (TIA), and cerebral infarction without residual deficits

== ENCOUNTER 2019-08-15 06:54 | Emergency (ER) | payer OTHER, MEDICAID ==
[2019-08-15] MEDS ORDERED: KEPP1TAB2 PO (07:36)
[2019-08-15] MEDS ORDERED: VIMP100T PO (09:08)
[2019-08-15] MEDS ORDERED: LACOSAMIDE 50 MG TAB (VIMPAT) PO ONE (09:15)
[2019-08-15 09:24] LABS: CREATININE FOR GFR 0.91 MG/DL (0.55-1.30); GLOMERULAR FILTRATION RATE > 60.0 (>60)
[2019-08-15 09:59] VITALS: BP 161/87
== END 2019-08-15 10:00 | disposition home or self-care (01) ==
LOC: EDBD 06:54 → M ED 06:54
DX: G40.909 Epilepsy, unspecified, not intractable, without status epilepticus (principal); I10 Essential (primary) hypertension; K21.9 Gastro-esophageal reflux disease without esophagitis; Z86.73 Personal history of transient ischemic attack (TIA), and cerebral infarction without residual deficits; Z91.041 Radiographic dye allergy status; Z79.01 Long term (current) use of anticoagulants; Z79.83 Long term (current) use of bisphosphonates; Z79.899 Other long term (current) drug therapy

== ENCOUNTER 2019-09-01 09:27 | Outpatient (RCR) | payer OTHER, MEDICAID ==
[~2019-09-01 09:27] MED LIST changes: +KEPP1TAB2 PO; +VIMP100T PO
== END 2019-09-08 ==
LOC: M ST 09:27
PROVIDERS: ATTEND Family Medicine
DX: I61.9 Nontraumatic intracerebral hemorrhage, unspecified (principal); Z51.89 Encounter for other specified aftercare

== ENCOUNTER → 2020-02-08 | Outpatient (RCR) | payer OTHER, MEDICAID ==
[~2020-02-08] MED LIST changes: -ASPI81TA85 PO; +ASPI81TA86 PO; -COUM1TAB14 PO; +COUM4TAB8 PO; +VITA-243 PO; -VITA500T PO
== END | disposition home or self-care (01) ==
LOC: M ST 01-25 08:30 → M PT 01-25 11:00 → M ST 02-01 07:54 → M PT 02-01 07:55 → M ST 02-02 09:39 → M PT 02-02 09:40 → M ST 09:00 → M PT 10:00
PROVIDERS: ATTEND Family Medicine
DX: G81.11 Spastic hemiplegia affecting right dominant side (principal)

== ENCOUNTER → 2020-03-09 | Outpatient (RCR) | payer OTHER, MEDICAID | LOC: M PT 02-11 08:43 → M ST 02-11 09:00 → M PT 02-16 09:03 → M ST 02-16 09:07 → M PT 02-18 09:14 → M ST 02-22 09:11 → M PT 02-22 09:17 → M ST 02-24 09:18 → M PT 02-24 09:24 → M ST 02-29 09:13 → M PT 02-29 09:22 → M ST 03-02 09:30 → M PT 03-02 09:37 → M ST 03-07 09:08 → M PT 03-07 09:08 → M ST 09:15 → M PT 09:15 | PROVIDERS: ATTEND Family Medicine | DX: G81.11 Spastic hemiplegia affecting right dominant side (principal) ==

== ENCOUNTER 2020-03-28 09:32 | Outpatient (RCR) | payer OTHER, MEDICAID | END 2020-04-09 | LOC: M ST 09:32 | PROVIDERS: ATTEND Family Medicine | DX: G81.11 Spastic hemiplegia affecting right dominant side (principal) ==

== ENCOUNTER → 2020-05-09 | Outpatient (RCR) | payer OTHER, MEDICAID | LOC: M PT 04-18 11:07 → M ST 04-27 09:18 → M PT 04-27 09:22 → M ST 05-02 09:13 → M PT 05-02 09:54 → M ST 05-04 09:09 → M PT 09:29 → M ST 09:30 | PROVIDERS: ATTEND Family Medicine | DX: G81.11 Spastic hemiplegia affecting right dominant side (principal) ==

== ENCOUNTER 2020-06-01 09:30 | Outpatient (RCR) | payer OTHER, MEDICAID | END 2020-06-09 | LOC: M ST 09:30 | PROVIDERS: ATTEND Family Medicine | DX: G81.11 Spastic hemiplegia affecting right dominant side (principal) ==

== ENCOUNTER 2020-06-08 10:46 | Outpatient (CLI) | payer OTHER, MEDICAID ==
[~2020-06-08] VITALS: Ht 182.9 cm; Wt 113.0 kg
[2020-06-08] MEDS ORDERED: ACETAMINOPHEN 500 MG TAB PO ONE (11:00)
[2020-06-08] MEDS ORDERED: IRON SUCROSE 200 MG in NS 100 ML OVER 1 HR IV ONE (11:00)
[2020-06-08 11:06] VITALS: BP 124/83
[2020-06-08 12:00] VITALS: BP 131/72
[2020-06-08 13:00] VITALS: BP 127/78
== END 2020-06-08 13:00 | disposition home or self-care (01) ==
LOC: M INFU 10:46
PROVIDERS: ATTEND Student in an Organized Health Care Education/Training Program
DX: D50.8 Other iron deficiency anemias (principal)
CPT/HCPCS: 96365; J1756

== ENCOUNTER 2020-06-15 10:39 | Outpatient (CLI) | payer OTHER, MEDICAID ==
[~2020-06-15] VITALS: Ht 182.9 cm; Wt 102.2 kg
[2020-06-15 11:00] VITALS: BP 142/89
[2020-06-15] MEDS ORDERED: IRON SUCROSE 200 MG in NS 100 ML OVER 1 HR IV ONE (11:30)
[2020-06-15] MEDS ORDERED: ACETAMINOPHEN 500 MG TAB PO ONE (11:30)
[2020-06-15] MEDS ORDERED: OXCA150T21 PO (11:40)
[2020-06-15 12:12] VITALS: BP 119/66
[2020-06-15 12:55] VITALS: BP 110/74
[2020-06-15 14:00] VITALS: BP 119/68
== END 2020-06-15 14:15 | disposition home or self-care (01) ==
LOC: M INFU 10:39
PROVIDERS: ATTEND Student in an Organized Health Care Education/Training Program
DX: D50.8 Other iron deficiency anemias (principal); Z88.8 Allergy status to other drugs, medicaments and biological substances
CPT/HCPCS: 96365; 96366; J1756

== ENCOUNTER 2020-06-22 10:47 | Outpatient (CLI) | payer OTHER, MEDICAID ==
[~2020-06-22] VITALS: Ht 182.9 cm; Wt 113.0 kg
[~2020-06-22 10:47] MED LIST changes: +OXCA150T21 PO
[2020-06-22 11:00] VITALS: BP 124/76
[2020-06-22] MEDS ORDERED: IRON SUCROSE 200 MG in NS 100 ML OVER 1 HR IV ONE (11:00)
[2020-06-22 12:29] VITALS: BP 132/79
== END 2020-06-23 12:30 | disposition home or self-care (01) ==
LOC: M INFU 10:47
PROVIDERS: ATTEND Student in an Organized Health Care Education/Training Program
DX: D50.8 Other iron deficiency anemias (principal)
CPT/HCPCS: 96365; J1756

== ENCOUNTER 2020-06-27 10:31 | Outpatient (CLI) | payer OTHER, MEDICAID ==
[2020-06-22 10:55] VITALS: BP 135/82
[~2020-06-27] VITALS: Ht 182.9 cm; Wt 113.0 kg
[~2020-06-27 10:31] MED LIST changes: +IRON SUCROSE 200 MG in NS 100 ML OVER 1 HR IV ONE
[2020-06-27 10:35] VITALS: BP 140/81
[2020-06-27] MEDS ORDERED: ACETAMINOPHEN 500 MG TAB PO ONE (11:30)
[2020-06-27 13:10] VITALS: BP 134/76
== END 2020-06-27 13:10 | disposition home or self-care (01) ==
LOC: M INFU 10:31
PROVIDERS: ATTEND Student in an Organized Health Care Education/Training Program
DX: D50.8 Other iron deficiency anemias (principal)
CPT/HCPCS: 96365; J1756

== ENCOUNTER 2020-07-04 09:24 | Outpatient (RCR) | payer OTHER, MEDICAID ==
[~2020-07-04 09:24] MED LIST changes: -IRON SUCROSE 200 MG in NS 100 ML OVER 1 HR IV ONE
== END 2020-07-10 ==
LOC: M ST 09:24
PROVIDERS: ATTEND Family Medicine
DX: G81.11 Spastic hemiplegia affecting right dominant side (principal)

== ENCOUNTER 2020-07-04 10:32 | Outpatient (CLI) | payer OTHER, MEDICAID ==
[~2020-07-04] VITALS: Ht 182.9 cm; Wt 102.2 kg
[~2020-07-04 10:32] MED LIST changes: +IRON SUCROSE 200 MG in NS 100 ML OVER 1 HR IV ONE
[2020-07-04 10:45] VITALS: BP 128/73
[2020-07-04] MEDS ORDERED: ACETAMINOPHEN 500 MG TAB PO ONE (11:15)
[2020-07-04 12:35] VITALS: BP 133/76
== END 2020-07-04 12:35 | disposition home or self-care (01) ==
LOC: M INFU 10:32
PROVIDERS: ATTEND Student in an Organized Health Care Education/Training Program
DX: D50.8 Other iron deficiency anemias (principal)
CPT/HCPCS: 96365; J1756

== ENCOUNTER 2020-08-01 09:30 | Outpatient (RCR) | payer OTHER, MEDICAID ==
[~2020-08-01 09:30] MED LIST changes: -IRON SUCROSE 200 MG in NS 100 ML OVER 1 HR IV ONE
== END 2020-08-07 ==
LOC: M ST 09:30
PROVIDERS: ATTEND Family Medicine
DX: G81.11 Spastic hemiplegia affecting right dominant side (principal)

== ENCOUNTER 2020-09-05 09:30 | Outpatient (RCR) | payer OTHER, MEDICAID | END 2020-09-07 | LOC: M ST 09:30 | PROVIDERS: ATTEND Family Medicine | DX: G81.11 Spastic hemiplegia affecting right dominant side (principal) ==

== ENCOUNTER 2020-10-03 09:30 | Outpatient (RCR) | payer OTHER, MEDICAID | END 2020-10-07 | LOC: M ST 09:30 | PROVIDERS: ATTEND Family Medicine | DX: G81.11 Spastic hemiplegia affecting right dominant side (principal) ==

== ENCOUNTER 2020-10-31 09:23 | Outpatient (RCR) | payer OTHER, MEDICAID | END 2020-11-07 | LOC: M ST 09:23 | PROVIDERS: ATTEND Family Medicine | DX: G81.11 Spastic hemiplegia affecting right dominant side (principal) ==

== ENCOUNTER 2020-11-28 09:13 | Outpatient (RCR) | payer OTHER, MEDICAID ==
[~2020-11-28 09:13] MED LIST changes: +OMEP40CA4 PO; -OMEP40CA97 PO
== END 2020-12-07 ==
LOC: M ST 09:13
PROVIDERS: ATTEND Family Medicine
DX: G81.11 Spastic hemiplegia affecting right dominant side (principal)